=== PATIENT | male | born 1985 | race Caucasian/White ===

== ENCOUNTER 2016-07-27 17:27 | Emergency (ER) | payer OTHER ==
--- NOTE | 2016-07-27 17:41 | EDPHY ---
H & P Smoking Status: Heavy smoker Time Seen by Provider: 07/27/16 17:40 HPI/ROS: CHIEF COMPLAINT: Depression and suicidal ideation HISTORY OF PRESENT ILLNESS: This 30-year-old man has a history of heroin addiction has had 3 relapses since he was in rehab in May. His most recent 1 was on Monday. He presents today with symptoms of increasing and severe depression and is brought in by his mother. He tells me that he wants to overdose or has thoughts of "going into the mountain and jumping off" something to kill himself. Symptoms are severe but not associated with any actual self injury today. Increasing anxiety. REVIEW OF SYSTEMS: Eye: no change in vision ENT: no sore throat Cardiac: no chest pain or syncope Pulmonary: no cough or SOB Abdomen: Intermittent nausea in the setting of narcotic withdrawal. Musculoskeletal: Chronic neck and back pain from ankylosing spondylitis. Skin: Recent left forearm superficial abrasions from a blunt knife but no laceration or abscess Neuro: no headache Constitutional: no fever : no urinary symptoms A comprehensive 10 point review of systems is otherwise negative aside from elements mentioned in the history of present illness. PAST MEDICAL HISTORY: IV drug abuse, ankylosing spondylitis, depression Social history: IV drug use as above. General Appearance: Alert and conversant, cooperative. Eyes: No scleral icterus. ENT, Mouth: Normal mucous membranes. Respiratory: Normal respiratory effort, breath sounds equal, lungs are clear to auscultation. Cardiovascular: Regular rate and rhythm. No murmur. Gastrointestinal: Abdomen is soft and non tender. Neurological: Alert and oriented x3. Normally conversant. Face symmetric, normal movement and sensation in all extremities. Skin: Superficial abrasions to the left forearm nonsuturable and no evidence of cellulitis. No upper extremity abscess. Musculoskeletal: No peripheral edema and no joint swelling. Psychiatric: Depressed affect, admits to suicidal ideation. Emergency Department course/MDM: Patient placed on a mental health hold at 6:00 p.m. for suicidal thoughts with plan to overdose or "go into the mountains and jump off" something. Zofran ODT 4 mg, Ativan 1 mg IV, 21 mg nicotine patch. The patient had a medical screening evaluation performed. There does not appear to be an acute emergent medical or surgical condition which would preclude psychiatric evaluation at this time. Mental health evaluation is requested at 1802. 2300: Signed out to Dr. Remy with mental health evaluation pending. (Gaurav Ortez) Constitutional: Initial Vital Signs Temperature (C) 36.8 C 07/27/16 17:32 Heart Rate 81 07/27/16 17:32 Respiratory Rate 18 07/27/16 17:32 Blood Pressure 133/87 H 07/27/16 17:32 O2 Sat (%) 98 07/27/16 17:32 O2 Delivery Mode Room Air Allergies/Adverse Reactions: azithromycin [From Zithromax] Allergy (Severe, Verified 07/27/16 17:30) Hives Home Medications: Medication Instructions Recorded Lexapro 07/27/16 Seroquel 07/27/16 Zofran 07/27/16 traZODone 07/27/16 Medical Decision Making Differential Diagnosis: Differential diagnosis considered for depression including functional and major depression, situational depression, medication side effect, drugs and alcohol abuse. (Gaurav Ortez) Other Provider: 0711: no acute events overnight. Patient signed over to Dr. Luong at 7:00 a.m. shift change. Patient is pending psychiatric placement. (Afshin Remy) I assumed care of the patient at 7 o'clock in the morning pending psychiatric placement. Update at 8:00 a.m.: The patient has been accepted by Dr. Clement King at [facility]. I have filled out the EMTALA transfer form. ( Brian Luong) - Data Points Laboratory Results: Laboratory Results 07/27/16 18:35 07/27/16 18:35 Medications Given: Discontinued Medications Diphtheria/Tetanus/Acell Pertussis (Boostrix) 0.5 ml IM .ONCE ONE Stop: 07/27/16 20:23 Last Admin: 07/27/16 20:25 Dose: 0.5 ml Ibuprofen (Motrin) 600 mg PO EDNOW ONE Stop: 07/27/16 22:05 Last Admin: 07/27/16 22:09 Dose: 600 mg Lorazepam (Ativan) 1 mg PO EDNOW ONE Stop: 07/27/16 17:59 Last Admin: 07/27/16 18:43 Dose: 1 mg Lorazepam (Ativan) 1 mg PO EDNOW ONE Stop: 07/28/16 00:05 Last Admin: 07/28/16 00:06 Dose: 1 mg Nicotine (Nicoderm Cq) 21 mg TD EDNOW ONE Stop: 07/27/16 17:59 Last Admin: 07/27/16 18:45 Dose: Not Given Ondansetron HCl (Zofran Odt) 4 mg PO EDNOW ONE Stop: 07/27/16 18:00 Last Admin: 07/27/16 18:43 Dose: 4 mg Quetiapine Fumarate (Seroquel) 100 mg PO ONCE ONE Stop: 07/27/16 22:09 Last Admin: 07/27/16 22:32 Dose: 100 mg Departure - Departure Disposition: Other Psych, Not [facility] Clinical Impression: Suicidal ideation, Severe major depression Condition: Fair Referrals: CAROLA ROBLES [Primary Care Provider] - As per Instructions
[2016-07-27] MEDS ORDERED: LORazepam 1 MG TAB PO ONE (17:58)
[2016-07-27] MEDS ORDERED: NICOTINE 21 MG/24 HR PATCH TD ONE (17:58)
[2016-07-27] MEDS ORDERED: ONDANSETRON DISINTEGRATING 4 MG TAB PO ONE (17:59)
[2016-07-27] MEDS ORDERED: NICOTINE POLACRILEX 2 MG GUM B PRN (18:44)
[2016-07-27 18:47] LABS: % IMMATURE GRANULYOCYTES 0.4 % (0.0-1.1); ABSOLUTE IMMATURE GRANULOCYTES 0.04 10^3/uL (0.00-0.10); ADD DIFF? NO; ADD MORPH? NO; ADD SCAN? NO; ATYPICAL LYMPHOCYTE FLAG 10 (0-99); FRAGMENT RBC FLAG 0 (0-99); HEMATOCRIT 48.7 % (40.0-51.0); HEMOGLOBIN 16.4 g/dL (13.7-17.5); LEFT SHIFT FLG 0 (0-99); LIPEMIA HEMOLYSIS FLAG 80 (0-99); MEAN CELL HEMOGLOBIN 29.4 pg (27.9-34.1); MEAN CELL HEMOGLOBIN CONCENTR. 33.7 g/dL (32.4-36.7); MEAN CELL VOLUME 87.4 fL (81.5-99.8); MEAN PLATELET VOLUME 9.9 fL (8.7-11.7); PLATELET CLUMPS FLAG 10 (0-99); PLATELET COUNT 206 10^3/uL (150-400); RED BLOOD CELL COUNT 5.57 10^6/uL (4.40-6.38); RED CELL DISTRIBUTION WIDTH 12.7 % (11.5-15.2)
[2016-07-27 19:06] LABS: ANION GAP 14 mEq/L (8-16); CALCIUM 10.1 mg/dL (8.5-10.4); CARBON DIOXIDE 24 mEq/l (22-31); CHLORIDE 105 mEq/L (97-110); CREATININE 0.6 mg/dL (0.7-1.3); ETHANOL SERUM < 10 mg/dL (0-10); GLOMERULAR FILTRATION RATE > 60; GLUCOSE 140 mg/dL (70-100); POTASSIUM 4.1 mEq/L (3.5-5.2); SALICYLATE < 1.0 mg/dL (2.0-20.0); SODIUM 143 mEq/L (134-144)
[2016-07-27] MEDS ORDERED: TDAP ADULT 0.5 ML INJ (BOOSTRIX) IM ONE (20:22)
[2016-07-27] MEDS ORDERED: IBUPROFEN 600 MG TAB PO ONE (22:04)
[2016-07-27] MEDS ORDERED: QUEtiapine FUMARATE 100 MG TAB PO ONE (22:08)
[2016-07-27] MEDS ORDERED: traZODone 100 MG TAB PO SCH (22:30)
[2016-07-28] MEDS ORDERED: LORazepam 1 MG TAB ONE (00:02)
[2016-07-28] MEDS ORDERED: LORazepam 1 MG TAB PO ONE (00:04)
[2016-07-28 08:40] VITALS: BP 101/55; PULSE 82; RESP 18; TEMP 97.7; O2SAT 96
== END 2016-07-28 10:07 ==
DX: F32.2 Major depressive disorder, single episode, severe without psychotic features (principal); R45.851 Suicidal ideations; F17.200 Nicotine dependence, unspecified, uncomplicated
CPT/HCPCS: 80305; G0480

== ENCOUNTER 2016-12-24 17:58 | Inpatient (IN) | payer OTHER ==
--- NOTE | 2016-12-24 18:23 | EDPHY ---
H & P Stated Complaint: Shot up R wrist 2 wks ago;now has abcess/cellulitis at site HPI/ROS: HPI CHIEF COMPLAINT: Right forearm pain, redness, swelling, IV drug use HISTORY OF PRESENT ILLNESS: This patient 31-year-old male, history of anxiety and chronic back pain from ankylosing spondylitis, history of opioid addiction and dependency on methadone, 2 weeks ago he tells me he relapsed and did IV drugs, he shot up in his right wrist. He states for the past 2 weeks he has had progressively worsening right wrist pain swelling and redness. Over the past 48 hours it has been quite severe. Does state that he has had chills and sweats at night. No recorded temp however was 37.7 upon arrival to the emergency room. Of note on exam palmar side of the right wrist there is significant erythema no crepitus, does streak up his arm. It is warm to touch and exquisitely painful. Swollen. Past Medical History: IV drug use, opiate dependency, on methadone, ankylosing spondylitis, anxiety Past Surgical History: No recent surgery Social History: IV drug use Family History: Noncontributory ROS REVIEW OF SYSTEMS: A comprehensive 10 point review of systems is otherwise negative aside from elements mentioned in the history of present illness. Exam Constitutional triage nursing summary reviewed, vital signs reviewed, awake/ alert. Eyes normal conjunctivae and sclera, EOMI, PERRLA. HENT normal inspection, atraumatic, moist mucus membranes, no epistaxis, neck supple/ no meningismus, no raccoon eyes. Respiratory clear to auscultation bilaterally, normal breath sounds, no respiratory distress, no wheezing. Cardiovascular no murmur, rate normal, regular rhythm, no murmur, no edema, distal pulses normal. Gastrointestinal soft, non-tender, no rebound, no guarding, normal bowel sounds, no distension, no pulsatile mass. Genitourinary no CVA tenderness. Musculoskeletal no midline vertebral tenderness, full range of motion, no calf swelling, no tenderness of extremities, no meningismus, good pulses, neurovascularly intact. Skin RUE: Good radial pulse. Good cap refill. Palmar side right wrist erythema and warmth and tenderness present. No crepitus. No evidence of gas on external exam, the erythema streaks up his right arm to his elbow. Tender and warm. Concerning for significant infection. Neurologic awake, alert and oriented x 3, AAOx3, moves all 4 extremities equally, motor intact, sensory intact, CN II-XII intact, normal cerebellar, normal vision, normal speech. Psychiatric normal mood/affect. Heme/Lymph/Immune no lymphadenopathy. Differential Diagnosis: Includes but is not limited to in a particular order MRSA infection, strep infection, bacteremia, sepsis, necrotizing fasciitis, osteomyelitis, IV drug use IV drug use site infection, arm abscess Medical Decision Making: Plan for this patient blood cultures, inflammatory markers, IV establishment, IV fluid bolus, check lactic acid, blood cultures, CBC, IV vancomycin x-ray of the right wrist. Patient will most likely need to be admitted for cellulitis. Possible MRI of his arm. Re-evaluation: ED x-ray: Right wrist: Negative for acute fracture. I do not appreciate any gas. 2138: I spoke with the hospitalist service who agrees to admit this patient for a right arm cellulitis. Dr. Ford Source: Patient - Personal History Current Tetanus Diphtheria and Acellular Pertussis (TDAP): Yes - Medical/Surgical History Hx Asthma: No Hx Chronic Respiratory Disease: No Hx Diabetes: No Hx Cardiac Disease: No Hx Renal Disease: No Hx Cirrhosis: No Hx Alcoholism: No Hx HIV/AIDS: No Hx Splenectomy or Spleen Trauma: No Other PMH: IVDA , , Depression, Anxiety - Social History Smoking Status: Current every day smoker Constitutional: Initial Vital Signs Temperature (C) 37.7 C 12/24/16 18:05 Heart Rate 88 12/24/16 18:05 Respiratory Rate 18 12/24/16 18:05 Blood Pressure 101/54 L 12/24/16 18:05 O2 Sat (%) 91 L 12/24/16 18:05 O2 Delivery Mode Room Air Allergies/Adverse Reactions: azithromycin [From Zithromax] Allergy (Intermediate, Verified 12/24/16 18:08) Hives Home Medications: Medication Instructions Recorded ALPRAZolam [Xanax 1 MG (*)] 1 - 2 mg PO DAILY PRN 12/24/16 Gabapentin [Neurontin 300 MG (*)] 300 mg PO TID 12/24/16 Ibuprofen [Motrin (*)] 800 mg PO DAILY PRN 12/24/16 Loperamide HCl [Imodium 2 mg (*)] 2 mg PO PRN PRN 12/24/16 Methadone HCl [Methadone 5 mg (*)] 135 mg PO DAILY 12/24/16 Methocarbamol [Robaxin 500 mg (*)] 500 mg PO HS PRN 12/24/16 Ondansetron Odt [Zofran Odt 4 mg 4 mg PO Q4 PRN 12/24/16 (*)] QUEtiapine FUMARATE [Seroquel 100 100 mg PO HS 12/24/16 mg (*)] traZODone [traZODONE 100MG (*)] 100 mg PO HS 12/24/16 Medical Decision Making - Diagnostics Imaging Results: Imaging Impressions Wrist X-Ray 12/24/16 18:30 Impression: No acute osseous findings. - Data Points Laboratory Results: Laboratory Results 12/24/16 18:42 12/24/16 18:42 12/24/16 12/24/16 12/24/16 18:42 18:42 18:42 WBC 11.59 10^3/uL H 10^3/uL (3.80-9.50) RBC 4.47 10^6/uL 10^6/uL (4.40-6.38) Hgb 13.2 g/dL L g/dL (13.7-17.5) Hct 40.6 % % (40.0-51.0) MCV 90.8 fL fL (81.5-99.8) MCH 29.5 pg pg (27.9-34.1) MCHC 32.5 g/dL g/dL (32.4-36.7) RDW 12.9 % % (11.5-15.2) Plt Count 184 10^3/uL 10^3/uL (150-400) MPV 10.2 fL fL (8.7-11.7) Neut % (Auto) 65.9 % % (39.3-74.2) Lymph % (Auto) 23.6 % % (15.0-45.0) [place] % (Auto) 6.9 % % (4.5-13.0) Eos % (Auto) 3.0 % % (0.6-7.6) Baso % (Auto) 0.3 % % (0.3-1.7) Nucleat RBC Rel Count 0.0 % % (0.0-0.2) Absolute Neuts (auto) 7.65 10^3/uL H 10^3/uL (1.70-6.50) Absolute Lymphs (auto) 2.73 10^3/uL 10^3/uL (1.00-3.00) Absolute Monos (auto) 0.80 10^3/uL 10^3/uL (0.30-0.80) Absolute Eos (auto) 0.35 10^3/uL 10^3/uL (0.03-0.40) Absolute Basos (auto) 0.03 10^3/uL 10^3/uL (0.02-0.10) Absolute Nucleated RBC 0.00 10^3/uL 10^3/uL (0-0.01) Immature Gran % 0.3 % % (0.0-1.1) Immature Gran # 0.03 10^3/uL 10^3/uL (0.00-0.10) ESR 8 MM/HR MM/HR (0-15) PT 14.1 SEC SEC (12.0-15.0) INR 1.10 (0.83-1.16) APTT 32.5 SEC SEC (23.0-38.0) VBG Lactic Acid Sodium 141 mEq/L mEq/L (134-144) Potassium 4.0 mEq/L mEq/L (3.5-5.2) Chloride 103 mEq/L mEq/L (97-110) Carbon Dioxide 26 mEq/l mEq/l (22-31) Anion Gap 12 mEq/L mEq/L (8-16) BUN 6 mg/dL L mg/dL (7-23) Creatinine 0.7 mg/dL mg/dL (0.7-1.3) Estimated GFR > 60 Glucose 74 mg/dL mg/dL (70-100) Calcium 9.2 mg/dL mg/dL (8.5-10.4) C-Reactive Protein 47.7 mg/L H mg/L (<10.0) Procalcitonin 0.05 ng/mL ng/mL (0.02-0.10) 12/24/16 18:42 WBC RBC Hgb Hct MCV MCH MCHC RDW Plt Count MPV Neut % (Auto) Lymph % (Auto) [place] % (Auto) Eos % (Auto) Baso % (Auto) Nucleat RBC Rel Count Absolute Neuts (auto) Absolute Lymphs (auto) Absolute Monos (auto) Absolute Eos (auto) Absolute Basos (auto) Absolute Nucleated RBC Immature Gran % Immature Gran # ESR PT INR APTT VBG Lactic Acid 1.0 mmol/L mmol/L (0.7-2.1) Sodium Potassium Chloride Carbon Dioxide Anion Gap BUN Creatinine Estimated GFR Glucose Calcium C-Reactive Protein Procalcitonin Medications Given: Discontinued Medications Sodium Chloride (Ns) 1,000 mls @ 0 mls/hr IV EDNOW ONE; Wide Open PRN Reason: Protocol Stop: 12/24/16 18:29 Last Admin: 12/24/16 19:12 Dose: 1,000 mls Vancomycin/Sodium Chloride (Vancomycin 1 Gm (Premix)) 250 mls @ 250 mls/hr IV EDNOW ONE PRN Reason: Protocol Stop: 12/24/16 19:29 Last Admin: 12/24/16 19:12 Dose: 250 mls Departure - Departure Disposition: [facility] Inpatient Acute Clinical Impression: Cellulitis Qualifiers: Site of cellulitis: extremity Site of cellulitis of extremity: upper extremity Laterality: right Qualified Code(s): L03.113 - Cellulitis of right upper limb Condition: Fair Referrals: CAROLA ROBLES [Primary Care Provider] - As per Instructions
[2016-12-24] MEDS ORDERED: NS 1,000 ML IV ONE (18:28)
[2016-12-24] MEDS ORDERED: VANCOMYCIN HCL/NORMAL SALINE 250 ML IV ONE (18:30)
[2016-12-24 18:54] LABS: % IMMATURE GRANULYOCYTES 0.3 % (0.0-1.1); ABSOLUTE IMMATURE GRANULOCYTES 0.03 10^3/uL (0.00-0.10); ADD DIFF? NO; ADD MORPH? NO; ADD SCAN? NO; ATYPICAL LYMPHOCYTE FLAG 10 (0-99); FRAGMENT RBC FLAG 0 (0-99); HEMATOCRIT 40.6 % (40.0-51.0); HEMOGLOBIN 13.2 g/dL (13.7-17.5); LEFT SHIFT FLG 0 (0-99); LIPEMIA HEMOLYSIS FLAG 80 (0-99); MEAN CELL HEMOGLOBIN 29.5 pg (27.9-34.1); MEAN CELL HEMOGLOBIN CONCENTR. 32.5 g/dL (32.4-36.7); MEAN CELL VOLUME 90.8 fL (81.5-99.8); MEAN PLATELET VOLUME 10.2 fL (8.7-11.7); PLATELET CLUMPS FLAG 0 (0-99); PLATELET COUNT 184 10^3/uL (150-400); RED BLOOD CELL COUNT 4.47 10^6/uL (4.40-6.38); RED CELL DISTRIBUTION WIDTH 12.9 % (11.5-15.2)
[2016-12-24 19:02] LABS: INR 1.1 (0.83-1.16); PROTIME(PATIENT) 14.1 SEC (12.0-15.0)
[2016-12-24 19:03] LABS: APTT 32.5 SEC (23.0-38.0)
[2016-12-24 19:05] LABS: SEDIMENTATION RATE 8 MM/HR (0-15)
[2016-12-24 19:20] LABS: ANION GAP 12 mEq/L (8-16); C-REACTIVE PROTEIN 47.7 mg/L (<10.0); CALCIUM 9.2 mg/dL (8.5-10.4); CARBON DIOXIDE 26 mEq/l (22-31); CHLORIDE 103 mEq/L (97-110); CREATININE 0.7 mg/dL (0.7-1.3); GLOMERULAR FILTRATION RATE > 60; GLUCOSE 74 mg/dL (70-100); SODIUM 141 mEq/L (134-144)
[2016-12-24 19:36] LABS: PROCALCITONIN 0.05 ng/mL (0.02-0.10)
[2016-12-24] MEDS ORDERED: ONDANSETRON DISINTEGRATING 4 MG TAB PO PRN (21:45)
[2016-12-24] MEDS ORDERED: ONDANSETRON 4 MG/2 ML VIAL IVP PRN (21:45)
[2016-12-24] MEDS ORDERED: PROMETHAZINE HCL 25 MG/ML INJ IVP PRN (21:45)
[2016-12-24] MEDS ORDERED: LOPERAMIDE HCL 2 MG CAP PO PRN (21:51)
[2016-12-24] MEDS ORDERED: METHOCARBAMOL 500 MG TAB PO PRN (21:51)
[2016-12-24] MEDS: NS 1,000 ML IV SCH ×2 (22:22→22:25)
[2016-12-24] MEDS: GABAPENTIN 300 MG CAP PO SCH (22:25)
[2016-12-24] MEDS: LORazepam 2 MG/ML INJ IVP PRN (22:34)
[2016-12-24] MEDS: HYDROmorphONE/DILAUDID 1 MG/ML SYR IVP PRN (22:34)
[2016-12-24] MEDS: oxyCODONE IR 5 MG TAB PO PRN (22:35)
--- NOTE | 2016-12-25 00:24 | GHP ---
[f rep st] HISTORY AND PHYSICAL DATE OF ADMISSION: 12/24/2016 CHIEF COMPLAINT: Right upper extremity swelling and pain. HISTORY: This is a 31-year-old man who has a past medical history of IV drug abuse and prior shoote rs abscesses as well as ankylosing spondylitis who presents with pain in his right wrist and forearm in the setting of having shot up in that arm about 2 weeks ago. Patient notes that initially it wa s okay, but over the last several days, there has been increasing redness, swelling, and pain involv ing the wrist and that entire forearm. He notes it is difficult for him to move his wrist at all. He has had chills but no clear fevers. He has had a similar issue in the past, but this was years a go, and he states that was treated with drainage and was much less painful than this. He notes that his IV drug use has largely been in remission and states that the only time he has used in the last year was 2 weeks ago. PAST MEDICAL HISTORY: Includes: 1. IV drug use. 2. Opiate dependency currently on methadone. 3. Ankylosing spondylitis. 4. Anxiety. 5. Cyclic vomiting syndrome. PAST SURGICAL HISTORY: Denies. FAMILY HISTORY: He notes that it is benign. SOCIAL HISTORY: Includes IV drug use. 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 REVIEW OF SYSTEMS: 10-point review of systems obtained negative except as per HPI. MEDICATIONS: Include: 1. Ibuprofen. 2. Zofran. 3. Xanax. 4. Gabapentin. 5. Loperamide. 6. Methadone. 7. Methocarbamol. 8. Quetiapine. 9. Trazodone. ALLERGIES: Azithromycin. PHYSICAL EXAM: VITAL SIGNS: BP 131/74, heart rate 73, respiratory rate 16, O2 sats 90% on room air , temperature is 37.8. GENERAL APPEARANCE: This is a young man, he is in mild distress. EYES: Anicteric. HENT: Oropharynx clear. CARDIOVASCULAR: RRR. No MRG. PULMONARY: CTA bilate rally. Normal work of breathing. ABDOMEN: Soft, nontender, nondistended. EXTREMITIES: Right upp er extremity with area of profound erythema near the wrist, decreased range of motion at the wrist. Forearm is a little bit tense and distended. SKIN: Other than above, warm, dry, well-perfused. NEURO/PSYCH: Oriented and appropriate, pleasant . CLINICAL DATA: Labs reviewed. Significant for white blood cell count of 11.59, hematocrit of 40.6, platelets of 184, coags are normal. Lactic acid is 1.0. Chemistry is unremarkable. CRP is 47.7. Wrist x-ray, I personally reviewed and interpreted, shows no acute osseous findings. ASSESSMENT AND PLAN: This is a 31-year-old man, past medical history of IV drug abuse, presenting w ith right upper extremity cellulitis in the setting of recent injection. 1. Right upper extremity cellulitis. Again, this is in the setting of recent drug abuse and inject ion of unclean needle in that wrist. He does have exquisite tenderness and very limited range of mo tion in the wrist, concerning for possible joint involvement. Will follow up with a wrist MRI. He has been started on vancomycin which will be continued for now pending blood cultures. Infectious D isjunito will be consulted in the morning. 2. Opiate dependency. Patient is currently in treatment with methadone. He notes that he has rela psed only once in the last year. This is as per above. We will continue his methadone, but he is h aving significant pain, and we will also require opiates for breakthrough pain. 3. Anxiety. This does seem to be contributing to his difficulty tolerating his pain. Will treat w ith p.r.n. benzodiazepines. 4. Leukocytosis in the setting of acute infectious process as per above. We will trend. DISPOSITION: Observation status. Suspect patient will need less than 48 hours stay for evaluation and management of above. Patient is new to my care. Old records reviewed, summarized as per HPI and past medical history. C are plan reviewed with ER physician, including plans for antibiotics. /[id number]/MODL
[2016-12-25] MEDS: oxyCODONE IR 5 MG TAB PO PRN ×6 (01:23→21:54)
[2016-12-25] MEDS: ALPRAZolam 1 MG TAB PO PRN ×4 (01:23→21:54)
[2016-12-25] MEDS: HYDROmorphONE/DILAUDID 1 MG/ML SYR IVP PRN ×4 (04:43→18:48)
[2016-12-25 05:48] LABS: ANION GAP 10 mEq/L (8-16); CALCIUM 8.8 mg/dL (8.5-10.4); CARBON DIOXIDE 22 mEq/l (22-31); CHLORIDE 106 mEq/L (97-110); CREATININE 0.7 mg/dL (0.7-1.3); GLOMERULAR FILTRATION RATE > 60; GLUCOSE 80 mg/dL (70-100); POTASSIUM 4.4 mEq/L (3.5-5.2); SODIUM 138 mEq/L (134-144)
[2016-12-25] MEDS: VANCOMYCIN 1.25 GM in D5W 250 ML IV SCH ×2 (06:42→18:49)
[2016-12-25] MEDS: GABAPENTIN 300 MG CAP PO SCH ×3 (07:35→21:23)
[2016-12-25] MEDS: ACETAMINOPHEN 325 MG TAB PO PRN ×3 (07:35→16:15)
[2016-12-25 08:10] LABS: % IMMATURE GRANULYOCYTES 0.3 % (0.0-1.1); ABSOLUTE IMMATURE GRANULOCYTES 0.03 10^3/uL (0.00-0.10); ADD DIFF? NO; ADD MORPH? NO; ADD SCAN? NO; ATYPICAL LYMPHOCYTE FLAG 10 (0-99); FRAGMENT RBC FLAG 0 (0-99); HEMATOCRIT 38.4 % (40.0-51.0); HEMOGLOBIN 12.4 g/dL (13.7-17.5); LEFT SHIFT FLG 0 (0-99); LIPEMIA HEMOLYSIS FLAG 80 (0-99); MEAN CELL HEMOGLOBIN 29.2 pg (27.9-34.1); MEAN CELL HEMOGLOBIN CONCENTR. 32.3 g/dL (32.4-36.7); MEAN CELL VOLUME 90.4 fL (81.5-99.8); MEAN PLATELET VOLUME 10.4 fL (8.7-11.7); PLATELET CLUMPS FLAG 0 (0-99); PLATELET COUNT 169 10^3/uL (150-400); RED BLOOD CELL COUNT 4.25 10^6/uL (4.40-6.38)
[2016-12-25] MEDS: METHADONE HCL 10 MG/ML 1000 ML BULK BOTTLE PO SCH (08:49)
[2016-12-25] MEDS: LORazepam 2 MG/ML INJ IVP PRN (09:05)
[2016-12-25] MEDS ORDERED: GADOBUTROL 10 ML VIAL IVP ONE (11:02)
[2016-12-25 11:56] LABS: ALBUMIN 3.7 g/dL (3.5-5.0); BILIRUBIN,TOTAL 0.5 mg/dL (0.1-1.4); BILIRUBIN-CONJUGATED 0.4 mg/dL (0.0-0.5); BILIRUBIN-UNCONJUGATED 0.1 mg/dL (0.0-1.1); TOTAL PROTEIN 6.3 g/dL (6.3-8.2)
[2016-12-25] MEDS: ERTAPENEM 1 GM in NS 100 ML IV SCH (14:09)
--- NOTE | 2016-12-25 15:56 | GCON ---
[f rep st] CONSULTATION INFECTIOUS DISEASE CONSULTATION DATE OF CONSULTATION: 12/25/2016 REFERRING PHYSICIAN: Ting Ford MD REASON FOR CONSULTATION: Right upper extremity cellulitis with possible abscess after recent inject ion of intravenous drugs. CHIEF COMPLAINT: Painful right arm. HISTORY OF PRESENT ILLNESS: This is a 31-year-old, male with a past medical history signi ficant for history of injection drug use, history of shooters abscesses, ankylosing spondylitis, anx iety, who apparently had been in a drug rehab program, but over the past couple months relapsed. Mo st recently, he shot up, both of his upper extremities, about 2 weeks ago. Shortly thereafter, he s tarted to develop redness involving the right arm, as well as the left upper arm. He was putting so me topical antibiotics over it, but it was getting worse, and he was starting to have more significa nt localized pain to the wrist, especially the right wrist. With decreased range of motion. He stat es that he has not been very cleanly with his needles, and he has often licked his needles or ran th e needles through hot water prior to injection. He has had fevers and shaking chills over the past week. Due to increasing pain and limited range of motion, he came in for further evaluation. He gonzalez d a fever of 37.7 and leukocytosis of 11.5, with an elevated C-reactive protein. He had a wrist x-r ay done, which showed no osseous changes. Blood cultures x2 sets were drawn also. Those are pendin g. He was placed empirically on vancomycin. An MRI has been ordered, but it will be done today, so that is pending. Infectious Disease is now consulted for further evaluation and above. REVIEW OF SYSTEMS: GENERAL: Had fevers and shaking chills. HEAD: Has mild headaches with some ch ronic changes in vision. ENT: No sore throat, difficulty swallowing, ear pain, or ear drainage. C ARDIOVASCULAR: No chest pain, but has had some palpitations. RESPIRATORY: Denies any shortness of breath. He has a chronic cough with some minimal sputum production on a regular basis because he s mokes. ABDOMEN: No nausea, vomiting, abdominal pain, diarrhea at present. : No dysuria, hematu divya. BACK: He has chronic back pain. No CVA tenderness. LOWER EXTREMITIES: No edema. MUSCULOSK ELETAL: No other joint pains. SKIN: No other areas of rashes or abscesses or wounds. Rest of 10- point review of systems essentially negative. PAST MEDICAL HISTORY: Significant for intravenous drug usage, ankylosing spondylitis, anxiety, cycl ic vomiting syndrome, opiate dependency, currently on methadone. He has had some fractures involving both his upper extremities and his clavicle. He has no hardware in place. PAST SURGICAL HISTORY: Significant for appendicitis. ALLERGIES: Azithromycin, which he would say he was a baby and he got a rash. FAMILY HISTORY: Significant for breast cancer in his mother. Skin cancer in his father. SOCIAL HISTORY: He smokes a pack a day. He drinks alcohol socially. Recent injection drug usage. Lives with a roommate. He is working in EDS at a local school. MEDICATIONS: As per MAR. PHYSICAL EXAMINATION: VITAL SIGNS: Temperature, current, 36.9, pulse is 67, blood pressure 140/95, respiratory rate is 16, saturation 97% on 2 L O2 via nasal cannula. GENERAL: He is sitting in bed in no acute respiratory distress. Awake, alert, oriented x3. HEENT. Head is normocephalic, atrau matic. Pupils are equal, round, react to light. No conjunctival injection. No petechiae noted. O ropharynx is clear. No posterior pharynx erythema or thrush. CARDIOVASCULAR: S1, S2. Regular rhy thm. Mildly tachycardic. No murmurs appreciated. RESPIRATORY: Clear to auscultate bilaterally. No rhonchi or rales appreciated. ABDOMEN: Positive bowel sounds in all 4 quadrants. Soft, nontend er, nondistended. No organomegaly appreciated. EXTREMITIES: No lower extremity edema. MUSCULOSKE LETAL: No other obvious areas of joint effusions or pain on palpation of joints. SKIN: Pertinent findings with erythema involving the right forearm, more concentrated distally toward the wrist. Th ere is limited range of motion at the wrist. Skin is warm to touch and is painful. Also, he had so me erythema on the left upper extremity, which has resolved. There is, however, thickening of the v ein and scarring present. He does have other areas of track hernandez noted. No numbness or tingling o f the extremities, and peripheral pulses are well appreciated. LABORATORY DATA: White blood cell count is 10.1, hemoglobin 12.4, platelets are 169, neutrophil cou nt is 50. ESR 8. INR 1.1. Venous lactic acid 1.0. Sodium 138, potassium 4.4, chloride 106, bicar b 22, BUN is 7, creatinine 0.7. C-reactive protein 47. Blood cultures in 2 sets are pending. DIAGNOSTIC DATA: Wrist x-ray was noted and reviewed. No osseous changes. ASSESSMENT: 1. Right forearm cellulitis, with likely abscess or possible septic arthritis involving the wrist j oint. 2. History of injection drug usage. 3. Azithromycin allergy. PLAN: At this point in time, patient is currently on vancomycin, which I will continue for now unti l cultures are resulted out. I agree with an MRI and await those findings to better direct the next step of intervention that may be needed. Given the fact that he has not used clean needles and has licked his needles or run it through hot water, would broaden his antimicrobials further to provide some additional coverage until cultures can better direct his therapy. Recommend checking HIV, hep atitis C, hepatitis B to start with. Patient gave me a verbal consent. Etiology of such infections were discussed in detail. Expected clinical course was discussed. Possible interventions were als o discussed with the patient. I thank you very much for this opportunity to care for your patient in consultation. /[id number]/MODL
--- NOTE | 2016-12-25 17:56 | HOSPPROG ---
Hospitalist Progress Note Assessment/Plan: The patient is a male with H opioid addiction, ankylosing spondylitis who was admitted for right forearm cellulitis. ASSESSMENT/PLAN: Cellulitis of right forearm IV drug abuse Opioid dependence, on methadone Chronic pain Ankylosing spondylitis Anxiety -IV antibiotic. Rash is responding appropriately. Consider to switch to p.o. antibiotics discharge when patient is ready. -blood culture pending -Discussed case with ID, who recommended to keep patient in hospital longer. -MRI suggests no abscess. -p.r.n. Pain medication and anxiety medication. May apply ice to help with pain. -patient has been requesting more frequent IV Dilaudid, Ativan, and Xanax. His vital signs are normal and he appears comfortable, so I recommended that we keep him on the same p.r.n. medication regimen because too many medications can cause more adverse effects. -Counseled about avoiding IVD use. VTE ppx: SCDs. Code Status: Full Status: Changing from observation to inpatient for greater than 2 midnight stay for cellulitis, uncontrolled pain, difficulty using right upper extremity to do normal ADLs. Disposition: Med [facility] with discharge anticipated in the next 1-2 days. ____ SUBJECTIVE: Patient complains of pain in his right wrist and forearm. He is worried that he will not be able to work when he leaves the hospital. He c/o pain and wants more pain medication. OBJECTIVE: Physical Exam: General: The patient is a male who is alert and in no acute distress. HEENT: normocephalic, extraocular movements intact, conjunctivae clear. Mucous membranes moist. Neck: trachea midline, no visible masses. CV: Normal peripheral perfusion bilateral upper and lower extremities. Resp: unlabored effort of breathing. Abd: soft and nondistended. Bowel sounds present. Musculoskeletal: Normal muscle tone/bulk. Neuro: cranial nerves II XII grossly intact. Intact gross motor and sensory function. Psych: Appropriate mood and appropriate affect. Skin: No pallor. +erythematous rash of right anterior distal forearm, much smaller than the demarcated area. Heme/lymph: No peripheral edema at bilateral lower extremities. Mild edema right distal forearm. Labs/Imaging/Other Tests: Personally reviewed/interpreted. Wrist XR - no osteomyelitis. MRI R wrist - no abscess. This patient is new to me. Reviewed patient's chart/records for this visit. Objective: Vital Signs Temp Pulse Resp BP Pulse Ox 36.8 C 57 L 14 135/81 H 95 12/25/16 15:48 12/25/16 15:48 12/25/16 15:48 12/25/16 15:48 12/25/16 15:48 Laboratory Results 12/25/16 07:44 12/25/16 04:52 12/24/16 12/25/16 12/26/16 05:59 05:59 05:59 Intake Total 3465 100 Output Total 800 575 Balance 2555 -475 PT 14.1 SEC (12.0-15.0) 12/24/16 18:42 INR 1.10 (0.83-1.16) 12/24/16 18:42 ICD10 Worksheet Patient Problems: Problems Problem Status Onset Cellulitis Acute
[2016-12-25] MEDS: IBUPROFEN 600 MG TAB PO PRN (18:44)
[2016-12-25] MEDS: LORazepam 0.5 MG TAB PO PRN (18:47)
[2016-12-25] MEDS ORDERED: traZODone 100 MG TAB PO SCH (21:00)
[2016-12-25] MEDS ORDERED: QUEtiapine FUMARATE 100 MG TAB PO SCH (21:00)
[2016-12-26] MEDS: HYDROmorphONE/DILAUDID 1 MG/ML SYR IVP PRN ×2 (00:12→05:09)
[2016-12-26] MEDS: IBUPROFEN 600 MG TAB PO PRN (02:02)
[2016-12-26] MEDS: oxyCODONE IR 5 MG TAB PO PRN (02:03)
[2016-12-26] MEDS: LORazepam 0.5 MG TAB PO PRN ×2 (05:09→13:22)
[2016-12-26 05:11] LABS: % IMMATURE GRANULYOCYTES 0.3 % (0.0-1.1); ABSOLUTE IMMATURE GRANULOCYTES 0.02 10^3/uL (0.00-0.10); ADD DIFF? NO; ADD MORPH? NO; ADD SCAN? NO; ATYPICAL LYMPHOCYTE FLAG 40 (0-99); FRAGMENT RBC FLAG 0 (0-99); HEMATOCRIT 38.1 % (40.0-51.0); HEMOGLOBIN 12.3 g/dL (13.7-17.5); LEFT SHIFT FLG 0 (0-99); LIPEMIA HEMOLYSIS FLAG 80 (0-99); MEAN CELL HEMOGLOBIN 29.4 pg (27.9-34.1); MEAN CELL HEMOGLOBIN CONCENTR. 32.3 g/dL (32.4-36.7); MEAN CELL VOLUME 90.9 fL (81.5-99.8); MEAN PLATELET VOLUME 10.1 fL (8.7-11.7); PLATELET CLUMPS FLAG 10 (0-99); PLATELET COUNT 164 10^3/uL (150-400); RED BLOOD CELL COUNT 4.19 10^6/uL (4.40-6.38); RED CELL DISTRIBUTION WIDTH 12.7 % (11.5-15.2)
[2016-12-26] MEDS: VANCOMYCIN 1.25 GM in D5W 250 ML IV SCH (06:48)
[2016-12-26 07:28] VITALS: BP 116/70; PULSE 56; RESP 14; TEMP 97.8; O2SAT 92
[2016-12-26] MEDS: GABAPENTIN 300 MG CAP PO SCH (08:31)
[2016-12-26] MEDS: METHADONE HCL 10 MG/ML 1000 ML BULK BOTTLE PO SCH (09:17)
[2016-12-26] MEDS: ERTAPENEM 1 GM in NS 100 ML IV SCH (09:17)
--- NOTE | 2016-12-26 09:25 | PCMIDPN ---
Assessment/Plan: Assessment/Plan: 1. Right forearm cellulitis after IVDU: - did not use clean needles, licked needles and ran it under warm occasionally as well - Clinically improving. - wbc improved. - blood cx pending -HIV/HCV/HBV/HAV negative.- Reviewed results with patient. - ON aimee Dow at present with improvment. - Recommend changing to orals atbx: Bactrim + Augmentin x 10 days. side effects of therapy reviewed with patient. -REviwed importance of extremity elevation -f/u in office on 01/02/17 at 11:30am. -care coorinated with hospitalist team eds [facility] aimee Subjective: Afebrile. feeling better. less pressure /pain involving forearm. less swelling as well. less red also. Denies diarrhea, abd pain, or sob. elevating arm. some improvement in range of motion at wrist as well. Objective: Vital Signs Temp Pulse Resp BP Pulse Ox 36.6 C 56 L 14 116/70 92 12/26/16 07:26 12/26/16 07:26 12/26/16 07:26 12/26/16 07:26 12/26/16 07:26 Laboratory Results 12/26/16 04:50 12/25/16 12/26/16 12/27/16 05:59 05:59 05:59 Intake Total 2585 Output Total 1125 Balance 1460 ESR 8 MM/HR (0-15) 12/24/16 18:42 C-Reactive Protein 47.7 mg/L (<10.0) H 12/24/16 18:42 - Physical Exam General Appearance: alert, no apparent distress Respiratory: lungs clear Cardiac/Chest: regular rate, rhythm Extremities: swelling Skin: erythema (left forearm: less red distally compared to yesterday. also less swelling noted. not hot like yesterday. slightly better range of motion as well at wrist. better flexion compared to extension. some induration distally. resolutoin of erythema on left upper arm and right upper arm.) ICD10 Worksheet Patient Problems: Problems Problem Status Onset Cellulitis Acute
[2016-12-26] MEDS: ALPRAZolam 1 MG TAB PO PRN (10:41)
--- NOTE | 2016-12-26 11:38 | PDDCSUM ---
Discharge Summary Discharge Summary: DISCHARGE SUMMARY FOLLOW-UP ITEMS: Outpatient infectious disease follow-up appointment next week DATE OF ADMISSION: 12/24/2016 DATE OF DISCHARGE: 12/26/2016 DISCHARGE DIAGNOSES: 1. Right forearm cellulitis 2. Chronic IV drug use 3. Chronic pain with continuous opiate and benzodiazepine dependency CONSULTATIONS: Infectious Disease, General surgery curb sided PROCEDURES / IMAGING: MRI demonstrating small metallic object at the affected site, most likely needle point, no discrete fluid collection amenable to drainage CHIEF COMPLAINT: Acute arm pain and swelling SUBJECTIVE: Patient is feeling better, continues to have some pain in his right upper extremity PHYSICAL EXAM ON DISCHARGE: Systolic blood pressure is 110, heart rate 50, afebrile overnight, satting on room air, ventral surface of right forearm demonstrates some indurated erythema which is mildly tender to palpation, not particularly fluctuant, full range of motion right wrist and right elbow without pain, there is some pain on hand completion manager in the right upper extremity and none with finger extension, no murmurs on cardiac exam LABS ON DISCHARGE: White blood cell count 6600, ESR 8, CRP 48, blood cultures no growth to date HOSPITAL COURSE BY PROBLEM: 1. Cellulitis. Right upper extremity, secondary to intravenous drug use, suspected to be polymicrobial in the setting of patient licking his needles and also being at risk for community-acquired MRSA,, leukocytosis improved after receiving combination of vancomycin and ertapenem per Infectious Disease. MRI demonstrated no discrete fluid collection amenable to surgical drainage, and although there is a small metallic object in the affected area, most likely the needle point, Dr. Quijano feels like surgical removal would create more harm than potential benefit. He recommends a full course of antibiotics and outpatient reassessment of the affected area. If the area is still indurated and erythematous, then he would recommend outpatient General surgery consultation through the [facility]. The patient will receive an additional 10 days of Bactrim and Augmentin per Dr. Chiang. 2. Chronic IV drug use and continuous opiate and benzodiazepine dependency. The patient certainly does have reason for acute pain exacerbation in the setting of cellulitis, but he is high risk for abuse of any narcotic medications prescribed. Consequently, I recommend that he utilize anti- inflammatory medications at home, and I am only comfortable prescribing him a very limited supply of oral Dilaudid, 4 mg times 10 tabs, given that the patient is chronically on methadone and he will be going to the methadone clinic today to fern picker his chronic dosage. He will also continue utilizing his as needed outpatient Xanax doses, and I will not prescribe him additional Ativan at this time. DISCHARGE MEDICATIONS: Please see official discharge medication reconciliation sheet in chart , Bactrim double strength bid 10 day supply, Augmentin 875 bid, 10 day supply, Dilaudid 4 mg orally, 10 tab prescribed. DISCHARGE INSTRUCTIONS: Please follow up with Dr. Chiang next week, please do not do drugs TIME SPENT: Greater than 30 minutes were spent on direct patient care, as well as discharge planning and preparation.
[2016-12-28 07:56] LABS: HEPATITIS Bs Ab QUANT 12.5 mIU/mL
== END 2016-12-26 13:41 | disposition home or self-care (01) | DRG 603 ==
LOC: INTOOBSV 21:32 → F3N 22:06 → OBSVTOIN 12-25 18:04
PROVIDERS: ADMIT Internal Medicine; ATTEND Internal Medicine
DX: L03.113 Cellulitis of right upper limb (principal); F11.20 Opioid dependence, uncomplicated; S51.841A Puncture wound with foreign body of right forearm, initial encounter; W46.0XXA Contact with hypodermic needle, initial encounter; M45.9 Ankylosing spondylitis of unspecified sites in spine; F41.9 Anxiety disorder, unspecified; F17.210 Nicotine dependence, cigarettes, uncomplicated; D72.829 Elevated white blood cell count, unspecified; K31.89 Other diseases of stomach and duodenum; Z88.1 Allergy status to other antibiotic agents; Z18.10 Retained metal fragments, unspecified; Y93.89 Activity, other specified
CPT/HCPCS: 86708-90; 96365; A9585; G0472; J1170; J1335; J2060; J3370

== ENCOUNTER 2017-01-04 17:12 | Emergency (ER) | payer OTHER ==
[2017-01-04 17:18] VITALS: RESP 16
[2017-01-04] MEDS ORDERED: LORazepam 1 MG TAB PO ONE (17:50)
--- NOTE | 2017-01-04 17:54 | EDPHY ---
H & P Stated Complaint: Recent cellulitis;still sick;increased anxiety;methadone w/d Time Seen by Provider: 01/04/17 17:19 HPI/ROS: CHIEF COMPLAINT: Abscess HISTORY OF PRESENT ILLNESS: Patient is a 31-year-old man with a history of IV drug abuse who comes to the emergency department complaining of abscess to his left antecubital region. He was admitted here last week for cellulitis to his right arm. He had an MRI that was negative for abscess. He was initially treated with IV antibiotics but discharged with Bactrim and azithromycin. He has done well and has cellulitis has improved. His antecubital region is fluctuate but not erythematous. He is also requesting Ativan cause he ran out of his Ativan and Xanax and does not have an appointment with his psychiatrist until next week. REVIEW OF SYSTEMS: Constitutional: denies: chills, fever, recent illness, recent injury EENTM: denies: blurred vision, double vision, nose congestion Respiratory: denies: cough, shortness of breath Cardiac: denies: chest pain, irregular heart rate, lightheadedness, palpitations Gastrointestinal/Abdominal: denies: abdominal pain, diarrhea, nausea, vomiting, blood streaked stools Genitourinary: denies: dysuria, frequency, hematuria, pain Musculoskeletal: denies: joint pain, muscle pain Skin: see HPI Neurological: denies: headache, numbness, paresthesia, tingling, dizziness, weakness Hematologic/Lymphatic: denies: blood clots, easy bleeding, easy bruising Immunologic/allergic: denies: HIV/AIDS, transplant EXAM: GENERAL: Well-appearing, well-nourished and in no acute distress. HEAD: Atraumatic, normocephalic. EYES: Pupils equal round and reactive to light, extraocular movements intact, sclera anicteric, conjunctiva are normal. ENT: TMs normal, nares patent, oropharynx clear without exudates. Moist mucous membranes. NECK: Normal range of motion, supple without lymphadenopathy or JVD. LUNGS: Breath sounds clear to auscultation bilaterally and equal. No wheezes rales or rhonchi. HEART: Regular rate and rhythm without murmurs, rubs or gallops. ABDOMEN: Soft, nontender, normoactive bowel sounds. No guarding, no rebound. No masses appreciated. BACK: No CVA tenderness, no spinal tenderness, step-offs or deformities EXTREMITIES: Normal range of motion, no pitting or edema. No clubbing or cyanosis. NEUROLOGICAL: Cranial nerves II through XII grossly intact. Normal speech, normal gait. 5/5 strength, normal movement in all extremities, normal sensation PSYCH: Normal mood, normal affect. SKIN: Left hand decubital abscess, small, not erythematous, fluctuant, right wrist erythema resolved, no fluctuance or abscess. Source: Patient Exam Limitations: No limitations - Medical/Surgical History Hx Asthma: No Hx Chronic Respiratory Disease: No Hx Diabetes: No Hx Cardiac Disease: No Hx Renal Disease: No Hx Cirrhosis: No Hx Alcoholism: No Hx HIV/AIDS: No Hx Splenectomy or Spleen Trauma: No Other PMH: IVDA , Ankylosing spondylitis Depression, Anxiety, appy, collar bone reset fx, bilat forearm fx's splinted, R thumb fx splinted, PTSD - Family History Significant Family History: No pertinent family hx - Social History Smoking Status: Current every day smoker Alcohol Use: Occasionally Drug Use: Heroin Constitutional: Initial Vital Signs Temperature (C) 36.9 C 01/04/17 17:14 Heart Rate 96 01/04/17 17:14 Respiratory Rate 16 01/04/17 17:14 Blood Pressure 110/67 01/04/17 17:14 O2 Sat (%) 92 01/04/17 17:14 O2 Delivery Mode Room Air Allergies/Adverse Reactions: azithromycin [From Zithromax] Allergy (Intermediate, Verified 01/04/17 17:13) Hives Home Medications: Medication Instructions Recorded ALPRAZolam [Xanax 1 MG (*)] 1 - 2 mg PO DAILY PRN 12/24/16 Gabapentin [Neurontin 300 MG (*)] 300 mg PO TID 12/24/16 Ibuprofen [Motrin (*)] 800 mg PO DAILY PRN 12/24/16 Loperamide HCl [Imodium 2 mg (*)] 2 mg PO PRN PRN 12/24/16 Methadone HCl [Methadone 5 mg (*)] 135 mg PO DAILY 12/24/16 Methocarbamol [Robaxin 500 mg (*)] 500 mg PO HS PRN 12/24/16 QUEtiapine FUMARATE [Seroquel 100 100 mg PO HS 12/24/16 mg (*)] traZODone [traZODONE 100MG (*)] 100 mg PO HS 12/24/16 Acetaminophen [Tylenol 325mg (*)] 650 mg PO Q4HRS PRN #0 tab 12/26/16 Amoxicillin/Clavulanate Pot 875 mg PO BID #15 tab 12/26/16 [Augmentin 875 MG TAB (*)] HYDROmorphone HCL [Dilaudid 4 mg 4 mg PO Q4 PRN #10 tab 12/26/16 (*)] Sulfamethox/Tmp 800/160 mg 1 tab PO BID #21 tab 12/26/16 [Bactrim Ds] LORazepam [Ativan 1 mg (RX)] 1 mg PO Q6-8PRN PRN #7 tab 01/04/17 Medical Decision Making Procedures: Procedure: Abscess drainage. The patient's abscess was located on the left antecubital. I obtained verbal consent from the patient to drain the abscess who was informed about the possibility of bleeding and pain. The abscess was incised with 11 blade scalpel and 2 cc of purulent drainage was expressed. I irrigated the wound and placed some packing. The patient tolerated the procedure well. The procedure was performed by myself. ED Course/Re-evaluation: I will treat the patient with a small dose of Ativan. He is quite anxious. I will also I and D his abscess. He also complains of chronic ankylosing spondylitis and back pain. I referred him to follow up with his regular physicians for this. Patient tolerated the procedure well. He is currently on antibiotics. I will refill his Ativan for short-term. Just before discharge the patient as the nurse if he could stay here for food and pain control. Nurse stated that this would be inappropriate. The patient then suggested that if he threatened suicide then he could stay here and be fed and have a warm bed. She discussed with him that this was inappropriate. He was discharged at this time. Differential Diagnosis: Partial list of the Differential diagnosis considered include but were not limited to; abscess, cellulitis, anxiety, chronic pain and although unlikely based on the history and physical exam, I also considered sepsis, fracture. I discussed these differential diagnoses and the plan with the patient as well as the usual and expected course. The patient understands that the diagnosis is provisional and that in medicine we are not always correct and that further workup is often warranted. Usual and customary warnings were given. All of the patient's questions were answered. The patient was instructed to return to the emergency department should the symptoms at all worsen or return, otherwise to followup with the physician as we discussed. - Data Points Medications Given: Discontinued Medications Lorazepam (Ativan) 2 mg PO EDNOW ONE Stop: 01/04/17 17:51 Last Admin: 01/04/17 17:56 Dose: 2 mg Departure - Departure Disposition: Home, Routine, Self-Care Clinical Impression: Abscess Condition: Fair Instructions: Abscess (ED) Additional Instructions: Your packing should be removed in 48 hours. Referrals: Benji Rodney MD [[facility] [place] Primary Care Provider] - As per Instructions Clement French MD [[facility] [place] Primary Care Provider] - As per Instructions Prescriptions: LORazepam [Ativan 1 mg (RX)] 1 mg PO Q6-8PRN PRN #7 tab PRN Reason: *Anxiety/Agitation/Insomnia
[2017-01-04 18:05] VITALS: BP 118/65; PULSE 82
[2017-01-04 18:41] VITALS: TEMP 98.2; O2SAT 93
== END 2017-01-04 18:41 | disposition home or self-care (01) ==
PROC: 0H9GXZZ Drainage of Left Hand Skin, External Approach (ICD-10-PCS; principal; 2017-01-04)
DX: L02.512 Cutaneous abscess of left hand (principal); F17.200 Nicotine dependence, unspecified, uncomplicated

== ENCOUNTER 2017-03-27 11:05 | Emergency (ER) | payer SELFPAY ==
--- NOTE | 2017-03-27 11:38 | CPEKG ---
Heart Rate: 50 RR Interval: 1200 P-R Interval: 108 QRSD Interval: 102 QT Interval: 532 QTC Interval: 486 P [place]: 14 QRS [place]: 83 T Wave [place]: 67 EKG Severity - ABNORMAL ECG - EKG Impression: SINUS ARRHYTHMIA, RATE 44-56 EKG Impression: SHORT OR INTERVAL, ACCELERATED AV CONDUCTION EKG Impression: PROBABLE LEFT VENTRICULAR HYPERTROPHY EKG Impression: LATERAL Q WAVES, PROBABLY NORMAL VARIATION EKG Impression: BORDERLINE PROLONGED QT INTERVAL Electronically Signed By: Nory Hunag 27-Mar-2017 14:54:08
--- NOTE | 2017-03-27 11:38 | CPEKG ---
Heart Rate: 50 RR Interval: 1200 P-R Interval: 108 QRSD Interval: 102 QT Interval: 532 QTC Interval: 486 P [place]: 14 QRS [place]: 83 T Wave [place]: 67 EKG Severity - ABNORMAL ECG - EKG Impression: SINUS ARRHYTHMIA, RATE 44-56 EKG Impression: SHORT CT INTERVAL, ACCELERATED AV CONDUCTION EKG Impression: PROBABLE LEFT VENTRICULAR HYPERTROPHY EKG Impression: LATERAL Q WAVES, PROBABLY NORMAL VARIATION EKG Impression: BORDERLINE PROLONGED QT INTERVAL Electronically Signed By: Nory Huang 27-Mar-2017 14:54:08
--- NOTE | 2017-03-27 11:38 | CPEKG ---
Heart Rate: 50 RR Interval: 1200 P-R Interval: 108 QRSD Interval: 102 QT Interval: 532 QTC Interval: 486 P [place]: 14 QRS [place]: 83 T Wave [place]: 67 EKG Severity - ABNORMAL ECG - EKG Impression: SINUS ARRHYTHMIA, RATE 44-56 EKG Impression: SHORT PA INTERVAL, ACCELERATED AV CONDUCTION EKG Impression: PROBABLE LEFT VENTRICULAR HYPERTROPHY EKG Impression: LATERAL Q WAVES, PROBABLY NORMAL VARIATION EKG Impression: BORDERLINE PROLONGED QT INTERVAL Electronically Signed By: Nory Huang 27-Mar-2017 14:54:08
[2017-03-27] MEDS ORDERED: NS 1,000 ML IV ONE (12:12)
[2017-03-27] MEDS ORDERED: ONDANSETRON 4 MG/2 ML VIAL IVP ONE (12:12)
[2017-03-27] MEDS ORDERED: LORazepam 2 MG/ML INJ IVP ONE ×2 (12:14→14:36)
[2017-03-27 12:31] LABS: PLATELET COUNT 244 10^3/uL (150-400)
[2017-03-27] MEDS ORDERED: METOCLOPRAMIDE 10 MG/2 ML VIAL IVP ONE (13:38)
[2017-03-27] MEDS ORDERED: IOPAMIDOL (ISOVUE-300) 100 ML BTL ONE (13:42)
--- NOTE | 2017-03-27 14:36 | EDPHY ---
H & P Stated Complaint: n/v/d unable to keep methadone down/chest/abd pain Time Seen by Provider: 03/27/17 12:00 HPI/ROS: Chief complaint: Nausea, vomiting and diarrhea History of present illness: This is a 31-year-old male who presents to the emergency department for evaluation nausea, vomiting and diarrhea. Patient reports the onset of symptoms over the last day. They have been persistent. He is concerned because he cannot keep down his medications, primarily his methadone. He reports he has associated discomfort throughout his chest and abdomen and diffuse body aches as well. He denies precipitating factors. He denies any alleviating factors, he has tried to take Zofran at home but he cannot keep it down. Review of systems: A 10 point review of systems was obtained and other than described above was negative - Personal History Current Tetanus/Diphtheria Vaccine: Yes - Medical/Surgical History Hx Asthma: No Hx Chronic Respiratory Disease: No Hx Diabetes: No Hx Cardiac Disease: No Hx Renal Disease: No Hx Cirrhosis: No Hx Alcoholism: No Hx HIV/AIDS: No Hx Splenectomy or Spleen Trauma: No Other PMH: IVDA , Ankylosing spondylitis Depression, Anxiety, appy, collar bone reset fx, bilat forearm fx's splinted, R thumb fx splinted, PTSD - Social History Smoking Status: Current every day smoker - Physical Exam Exam: General Appearance: Alert, appears uncomfortable, diffuse diaphoresis. Eyes: Pupils equal and round no pallor or injection. ENT, Mouth: Mucous membranes moist. Respiratory: There are no retractions, lungs are clear to auscultation. Cardiovascular: Regular rate and rhythm. Gastrointestinal: Bowel sounds normal. Abdomen is soft, nondistended, nontender to palpation. Neurological: Alert and oriented x4. Strength and sensation intact and symmetrical. Skin: Warm and dry, no rashes. Musculoskeletal: Neck is supple non tender. Extremities are symmetrical, full range of motion. Psychiatric: Patient is oriented X 3, there is no agitation. Constitutional: Initial Vital Signs Temperature (C) 36.6 C 03/27/17 11:11 Heart Rate 53 L 03/27/17 11:11 Respiratory Rate 22 H 03/27/17 11:11 Blood Pressure 131/78 H 03/27/17 11:11 O2 Sat (%) 100 03/27/17 11:11 O2 Delivery Mode Room Air O2 (L/minute) 2 Allergies/Adverse Reactions: azithromycin [From Zithromax] Allergy (Intermediate, Verified 03/27/17 11:08) Hives Home Medications: Medication Instructions Recorded ALPRAZolam [Xanax 1 MG (*)] 1 - 2 mg PO DAILY PRN 12/24/16 Gabapentin [Neurontin 300 MG (*)] 300 mg PO TID 12/24/16 Ibuprofen [Motrin (*)] 800 mg PO DAILY PRN 12/24/16 Methadone HCl [Methadone 5 mg (*)] 135 mg PO DAILY 12/24/16 Methocarbamol [Robaxin 500 mg (*)] 500 mg PO HS PRN 12/24/16 QUEtiapine FUMARATE [Seroquel 100 100 mg PO HS 12/24/16 mg (*)] traZODone [traZODONE 100MG (*)] 100 mg PO HS 12/24/16 LORazepam [Ativan 1 mg (RX)] 1 mg PO Q6-8PRN PRN #7 tab 01/04/17 Medical Decision Making - Diagnostics Imaging Results: Imaging Impressions Chest X-Ray 03/27/17 12:13 Impression: Clear lungs. No acute process. Abdomen CT 03/27/17 13:38 Impression: 1. Prior appendectomy. 2. No bowel obstruction, abscess, or inflammatory changes. 3. Otherwise unremarkable. Findings and recommendations discussed with Emergency Department physician, Calderon Moody PA-C at 1557 hours on March 27, 2017. Final report concurs with initial preliminary interpretation. Imaging: Discussed imaging studies w/ call center assistant Radiologist, I viewed and interpreted images myself ED Course/Re-evaluation: Patient is discussed with my primary supervising physician Dr. Nory Huang. Patient presents to the emergency department for evaluation of nausea vomiting and diarrhea with discomfort throughout the chest and abdomen and body aches. He is unwell appearing on presentation. Certainly I am concerned that he could be withdrawing from opioids. Blood studies are obtained, he has a significant leukocytosis, therefore imaging studies are obtained including chest x-ray and CT scan to ensure no other pathology, these are unremarkable. He has been IV hydrated. Treated with antiemetics, benzodiazepines and IV narcotics with improvement in symptoms. He is comfortable being discharged home. I will discharge him with orally dissolving Zofran and Phenergan suppositories which he has used in the past with good results. He is asked to use these in order to take his normal medications including his methadone. He is to follow up with his primary care doctor for recheck. Return precautions are given. Patient voiced understanding and agreement with plan. Differential Diagnosis: Included but not limited to infections of multiple etiologies including bronchitis, pneumonia, gastroenteritis, diverticulitis, colitis as well is withdrawal symptoms - Data Points Laboratory Results: Laboratory Results 03/27/17 11:20 03/27/17 11:20 03/27/17 03/27/17 03/27/17 12:36 11:20 11:20 WBC 20.06 10^3/uL H 10^3/uL (3.80-9.50) RBC 5.34 10^6/uL 10^6/uL (4.40-6.38) Hgb 16.8 g/dL g/dL (13.7-17.5) Hct 47.9 % % (40.0-51.0) MCV 89.7 fL fL (81.5-99.8) MCH 31.5 pg pg (27.9-34.1) MCHC 35.1 g/dL g/dL (32.4-36.7) RDW 13.5 % % (11.5-15.2) Plt Count 244 10^3/uL 10^3/uL (150-400) MPV 10.2 fL fL (8.7-11.7) Neut % (Auto) 88.6 % H % (39.3-74.2) Lymph % (Auto) 6.1 % L % (15.0-45.0) [place] % (Auto) 4.1 % L % (4.5-13.0) Eos % (Auto) 0.0 % L % (0.6-7.6) Baso % (Auto) 0.3 % % (0.3-1.7) Nucleat RBC Rel Count 0.0 % % (0.0-0.2) Absolute Neuts (auto) 17.77 10^3/uL H 10^3/uL (1.70-6.50) Absolute Lymphs (auto) 1.22 10^3/uL 10^3/uL (1.00-3.00) Absolute Monos (auto) 0.83 10^3/uL H 10^3/uL (0.30-0.80) Absolute Eos (auto) 0.00 10^3/uL L 10^3/uL (0.03-0.40) Absolute Basos (auto) 0.06 10^3/uL 10^3/uL (0.02-0.10) Absolute Nucleated RBC 0.00 10^3/uL 10^3/uL (0-0.01) Immature Gran % 0.9 % % (0.0-1.1) Immature Gran # 0.18 10^3/uL H 10^3/uL (0.00-0.10) Sodium 141 mEq/L mEq/L (134-144) Potassium 4.0 mEq/L mEq/L (3.5-5.2) Chloride 107 mEq/L mEq/L (97-110) Carbon Dioxide 19 mEq/l L mEq/l (22-31) Anion Gap 15 mEq/L mEq/L (8-16) BUN 12 mg/dL mg/dL (7-23) Creatinine 0.7 mg/dL mg/dL (0.7-1.3) Estimated GFR > 60 Glucose 200 mg/dL H mg/dL (70-100) Calcium 9.9 mg/dL mg/dL (8.5-10.4) Total Bilirubin 0.7 mg/dL mg/dL (0.1-1.4) Conjugated Bilirubin 0.2 mg/dL mg/dL (0.0-0.5) Unconjugated Bilirubin 0.5 mg/dL mg/dL (0.0-1.1) AST 30 IU/L IU/L (17-59) ALT 44 IU/L IU/L (21-72) Alkaline Phosphatase 87 IU/L IU/L (38-126) Troponin I < 0.012 ng/mL ng/mL (0.000-0.034) Total Protein 7.3 g/dL g/dL (6.3-8.2) Albumin 4.8 g/dL g/dL (3.5-5.0) Lipase 73 IU/L IU/L (23-300) Nasal Influenza A PCR NEGATIVE FOR FLU A (NEGATIVE) Nasal Influenza B PCR NEGATIVE FOR FLU B (NEGATIVE) Medications Given: Discontinued Medications Hydromorphone HCl (Dilaudid) 1 mg IVP EDNOW ONE Stop: 03/27/17 14:40 Last Admin: 03/27/17 14:55 Dose: 1 mg Hydromorphone HCl (Dilaudid) 1 mg IVP EDNOW ONE Stop: 03/27/17 16:04 Last Admin: 03/27/17 16:12 Dose: 1 mg Sodium Chloride (Ns) 1,000 mls @ 0 mls/hr IV EDNOW ONE; Wide Open PRN Reason: Protocol Stop: 03/27/17 12:13 Last Admin: 03/27/17 12:38 Dose: 1,000 mls Lorazepam (Ativan Injection) 1 mg IVP EDNOW ONE Stop: 03/27/17 12:15 Last Admin: 03/27/17 12:38 Dose: 1 mg Lorazepam (Ativan Injection) 2 mg IVP EDNOW ONE Stop: 03/27/17 14:37 Last Admin: 03/27/17 14:54 Dose: 1 mg Metoclopramide HCl (Reglan Injection) 10 mg IVP EDNOW ONE Stop: 03/27/17 13:39 Last Admin: 03/27/17 14:55 Dose: 10 mg Ondansetron HCl (Zofran) 4 mg IVP EDNOW ONE Stop: 03/27/17 12:13 Last Admin: 03/27/17 12:38 Dose: 4 mg Ondansetron HCl (Zofran Odt 4 Mg Prepack#2) 1 btl TAKEHOME EDNOW ONE Stop: 03/27/17 16:07 Last Admin: 03/27/17 16:38 Dose: 1 btl Promethazine HCl (Phenergan 25mg Supp Prepack#4) 1 btl TAKEHOME EDNOW ONE Stop: 03/27/17 16:07 Last Admin: 03/27/17 16:39 Dose: 1 btl Departure - Departure Disposition: Home, Routine, Self-Care Clinical Impression: Vomiting and diarrhea Leukocytosis Qualifiers: Leukocytosis type: unspecified Qualified Code(s): D72.829 - Elevated white blood cell count, unspecified Condition: Good Instructions: Ondansetron (By mouth), Promethazine (Into the rectum), Acute Nausea and Vomiting (ED), Acute Diarrhea (ED) Additional Instructions: Follow-up with your primary care doctor for recheck If symptoms worsen or new symptoms develop return to the emergency room for recheck Referrals: NONE *PRIMARY CARE P,. [Primary Care Provider] - As per Instructions Stand Alone Forms: Statement of Treatment
[2017-03-27] MEDS ORDERED: HYDROmorphONE/DILAUDID 1 MG/ML INJ IVP ONE ×2 (14:39→16:03)
[2017-03-27 16:01] VITALS: O2SAT 98
[2017-03-27] MEDS ORDERED: ONDANSETRON 4MG PREPACK#2 BTL TAKEHOME ONE (16:06)
[2017-03-27] MEDS ORDERED: PROMETHAZINE 25MG SUPP PREPK#4 BTL TAKEHOME ONE (16:06)
[2017-03-27 16:50] VITALS: BP 100/60; PULSE 61; RESP 16; TEMP 97.5
== END 2017-03-27 16:52 | disposition home or self-care (01) ==
DX: D72.829 Elevated white blood cell count, unspecified (principal); R11.10 Vomiting, unspecified; R19.7 Diarrhea, unspecified; F17.200 Nicotine dependence, unspecified, uncomplicated; E86.9 Volume depletion, unspecified
CPT/HCPCS: 96374; J1170; J2060; J2405; J2765; Q9967

== ENCOUNTER 2017-03-29 10:20 | Emergency (ER) | payer OTHER ==
[2017-03-29] MEDS ORDERED: HYDROmorphONE/DILAUDID 1 MG/ML INJ IVP ONE (10:32)
[2017-03-29] MEDS ORDERED: NS 1,000 ML IV ONE ×2 (10:32)
--- NOTE | 2017-03-29 10:32 | EDPHY ---
H & P Stated Complaint: N/V, sweating, chills, aches-hre 2 days ago, not getting better Time Seen by Provider: 03/29/17 10:31 HPI/ROS: HPI: This is a 31-year-old male who presents with Chief Complaint: N/V, sweating, chills, aches-hre 2 days ago, not getting better Location: Body Quality: Nausea vomiting Duration: 3 days Signs and Symptoms: no fever, no nausea, no vomiting, no hematemesis, no blood in stool, no abdominal bloating, no diarrhea, no back pain, no urinary symptoms , no testicular/groin pain, no indigestion, no chest pain, no shortness of breath Timing: Intermittent Severity: Moderate to severe Context: Patient is an IV drug user, currently on methadone, managed by the [facility] who re-presented to the emergency room after being here 2 days ago with continued nausea, vomiting several times per day, sweating, chills, and body aches. Patient originally had diarrhea but has had none since yesterday evening. Mother reports that patient just went to the clinic and had his methadone increased and took his methadone approximately 30 minutes prior to arrival. He takes methadone and clonidine every morning. ER visit 2 days ago patient had a negative chest x-ray and CT abdomen and pelvis scan; tested negative for influenza. Patient given Zofran ODT and Phenergan suppositories. Patient admits that he never filled Phenergan suppositories and did not use. Mother is concerned that he may have C diff colitis or [place] virus. Denies fever/headache/neck stiffness. Modifying Factors: See above Comment: ROS: see HPI Constitutional: No fever, no chills, no weight loss Eyes: No blurred vision Respiratory: No shortness of breath, no cough Cardiovascular: No chest pain, no palpitations Gastrointestinal: + nausea, + vomiting, no diarrhea, no hematemesis, no blood in stool Genitourinary: No dysuria, no blood in urine Extremities: No myalgias, no edema Neurologic: No weakness, no numbness Skin: No rashes, no petechiae Hematologic: No bruising, no bleeding MEDICAL/SURGICAL/SOCIAL HISTORY: Medical history: IVDA, Ankylosing spondylitis, Depression, Anxiety, bilateral forearm fx's splinted, R thumb fx splinted, PTSD Surgical history: collar bone reset fx, appendectomy Social history: Former IV drug user CONSTITUTIONAL: Adult white male who appears ill but nontoxic in appearance awake and alert, no obvious distress HEENT: Atraumatic and normocephalic, PERRL, EOMI. Tympanic membranes clear. Oropharynx clear, no exudate and dry oral mucosa with cracked lips; Airway patent. No lymphadenopathy. No meningismus. Cardiovascular: Normal S1/S2, regular rate, regular rhythm, without murmur rub or gallop. PULMONARY/CHEST: Symmetrical and nontender. Clear to auscultation bilaterally. Good air movement. No accessory muscle usage. ABDOMEN: Soft, nondistended, nontender, no rebound, no guarding, no peritoneal signs, no masses or organomegaly. No CVAT. EXTREMITIES: 2/2 pulses, strength 5/5, no deformities, no clubbing, no cyanosis or edema. NEUROLOGICAL: no focal neuro deficits. GCS 15. Shakiness noted. SKIN: Warm and dry, no erythema. no rash. Good capillary refill. Source: Patient Exam Limitations: No limitations - Personal History Current Tetanus/Diphtheria Vaccine: Yes Current Tetanus Diphtheria and Acellular Pertussis (TDAP): Yes Tetanus Vaccine Date: < 10 years - Medical/Surgical History Hx Asthma: No Hx Chronic Respiratory Disease: No Hx Diabetes: No Hx Cardiac Disease: No Hx Renal Disease: No Hx Cirrhosis: No Hx Alcoholism: No Hx HIV/AIDS: No Hx Splenectomy or Spleen Trauma: No Other PMH: IVDA , Ankylosing spondylitis Depression, Anxiety, appy, collar bone reset fx, bilat forearm fx's splinted, R thumb fx splinted, PTSD - Social History Smoking Status: Current every day smoker Constitutional: Initial Vital Signs Temperature (C) 37.1 C 03/29/17 10:22 Heart Rate 75 03/29/17 10:22 Respiratory Rate 20 03/29/17 10:22 Blood Pressure 129/81 H 03/29/17 10:22 O2 Sat (%) 97 03/29/17 10:22 O2 Delivery Mode Room Air Allergies/Adverse Reactions: azithromycin [From Zithromax] Allergy (Intermediate, Verified 03/29/17 10:21) Hives Home Medications: Medication Instructions Recorded ALPRAZolam [Xanax 1 MG (*)] 1 - 2 mg PO DAILY PRN 12/24/16 Gabapentin [Neurontin 300 MG (*)] 300 mg PO TID 12/24/16 Ibuprofen [Motrin (*)] 800 mg PO DAILY PRN 12/24/16 Methadone HCl [Methadone 5 mg (*)] 135 mg PO DAILY 12/24/16 Methocarbamol [Robaxin 500 mg (*)] 500 mg PO HS PRN 12/24/16 QUEtiapine FUMARATE [Seroquel 100 100 mg PO HS 12/24/16 mg (*)] traZODone [traZODONE 100MG (*)] 100 mg PO HS 12/24/16 LORazepam [Ativan 1 mg (RX)] 1 mg PO Q6-8PRN PRN #7 tab 01/04/17 LORazepam [Ativan (*)] 1 mg PO Q6 PRN #10 tab 03/29/17 Medical Decision Making ED Course/Re-evaluation: Labs, urinalysis, urine drug screen, IV fluids, IV medications ordered Due to the nausea and vomiting patient has not had a normal amount of methadone and system for several days; suspect withdrawal versus viral syndrome. COWS scale=7; mild withdrawal Given 2 L normal saline, IV Valium, IV Dilaudid 1 mg, IV promethazine 12.5 mg Patient is afebrile, no lactic acidosis. No signs of sepsis. 1211: Notified by nursing that patient has refused Valium as "does not work ". Requesting IV Ativan. IV Haldol 2.5 mg ordered after discussion with attending despite risk of QT prolongation with concomitant use with methadone 1234: Reviewed labs which show mild leukocytosis but greatly improved from 2 days prior. No signs of a KI, electrolyte imbalance, elevated LFTs CT UDS is positive for marijuana Urinalysis shows trace ketones. 1347: Reassessed patient who is sound asleep for the last 2 hours. Mother is not at bedside. Has p.o. trial prior to discharge. Has close follow-up appointment with methadone clinic in the a.m. Appropriate to discharge home with supportive care. Differential Diagnosis: Differential diagnosis includes but is not limited to opiate withdrawal, viral syndrome, electrolyte imbalance. - Data Points Laboratory Results: Laboratory Results 03/29/17 11:35 03/29/17 11:35 03/29/17 03/29/17 03/29/17 12:57 11:35 11:35 WBC 11.86 10^3/uL H D 10^3/uL (3.80-9.50) RBC 4.85 10^6/uL 10^6/uL (4.40-6.38) Hgb 15.4 g/dL g/dL (13.7-17.5) Hct 44.1 % % (40.0-51.0) MCV 90.9 fL fL (81.5-99.8) MCH 31.8 pg pg (27.9-34.1) MCHC 34.9 g/dL g/dL (32.4-36.7) RDW 13.3 % % (11.5-15.2) Plt Count 179 10^3/uL D 10^3/uL (150-400) MPV 10.2 fL fL (8.7-11.7) Neut % (Auto) 82.9 % H % (39.3-74.2) Lymph % (Auto) 11.3 % L % (15.0-45.0) [place] % (Auto) 4.7 % % (4.5-13.0) Eos % (Auto) 0.3 % L % (0.6-7.6) Baso % (Auto) 0.2 % L % (0.3-1.7) Nucleat RBC Rel Count 0.0 % % (0.0-0.2) Absolute Neuts (auto) 9.83 10^3/uL H 10^3/uL (1.70-6.50) Absolute Lymphs (auto) 1.34 10^3/uL 10^3/uL (1.00-3.00) Absolute Monos (auto) 0.56 10^3/uL 10^3/uL (0.30-0.80) Absolute Eos (auto) 0.04 10^3/uL 10^3/uL (0.03-0.40) Absolute Basos (auto) 0.02 10^3/uL 10^3/uL (0.02-0.10) Absolute Nucleated RBC 0.00 10^3/uL 10^3/uL (0-0.01) Immature Gran % 0.6 % % (0.0-1.1) Immature Gran # 0.07 10^3/uL 10^3/uL (0.00-0.10) VBG Lactic Acid Sodium 141 mEq/L mEq/L (134-144) Potassium 4.3 mEq/L mEq/L (3.5-5.2) Chloride 107 mEq/L mEq/L (97-110) Carbon Dioxide 22 mEq/l mEq/l (22-31) Anion Gap 12 mEq/L mEq/L (8-16) BUN 10 mg/dL mg/dL (7-23) Creatinine 0.6 mg/dL L mg/dL (0.7-1.3) Estimated GFR > 60 Glucose 110 mg/dL H mg/dL (70-100) Calcium 9.5 mg/dL mg/dL (8.5-10.4) Total Bilirubin 0.4 mg/dL mg/dL (0.1-1.4) Conjugated Bilirubin 0.0 mg/dL mg/dL (0.0-0.5) Unconjugated Bilirubin 0.4 mg/dL mg/dL (0.0-1.1) AST 28 IU/L IU/L (17-59) ALT 45 IU/L IU/L (21-72) Alkaline Phosphatase 72 IU/L IU/L (38-126) Total Protein 7.3 g/dL g/dL (6.3-8.2) Albumin 4.8 g/dL g/dL (3.5-5.0) Lipase 100 IU/L IU/L (23-300) Urine Color PALE YELLOW Urine Appearance CLEAR Urine pH 5.0 (5.0-7.5) Ur Specific [place] 1.004 (1.002-1.030) Urine Protein NEGATIVE (NEGATIVE) Urine Ketones TRACE H (NEGATIVE) Urine Blood NEGATIVE (NEGATIVE) Urine Nitrate NEGATIVE (NEGATIVE) Urine Bilirubin NEGATIVE (NEGATIVE) Urine Urobilinogen NEGATIVE EU EU (0.2-1.0) Ur Leukocyte Esterase NEGATIVE (NEGATIVE) Urine Glucose NEGATIVE (NEGATIVE) Urine Opiates Screen NEGATIVE (NEGATIVE) Urine Barbiturates NEGATIVE (NEGATIVE) Ur Phencyclidine Scrn NEGATIVE (NEGATIVE) Ur Amphetamine Screen NEGATIVE (NEGATIVE) U Benzodiazepines Scrn NEGATIVE (NEGATIVE) Urine Cocaine Screen NEGATIVE (NEGATIVE) U Marijuana (THC) Screen NON-NEGATIVE H (NEGATIVE) 03/29/17 11:34 WBC RBC Hgb Hct MCV MCH MCHC RDW Plt Count MPV Neut % (Auto) Lymph % (Auto) [place] % (Auto) Eos % (Auto) Baso % (Auto) Nucleat RBC Rel Count Absolute Neuts (auto) Absolute Lymphs (auto) Absolute Monos (auto) Absolute Eos (auto) Absolute Basos (auto) Absolute Nucleated RBC Immature Gran % Immature Gran # VBG Lactic Acid 1.0 mmol/L mmol/L (0.7-2.1) Sodium Potassium Chloride Carbon Dioxide Anion Gap BUN Creatinine Estimated GFR Glucose Calcium Total Bilirubin Conjugated Bilirubin Unconjugated Bilirubin AST ALT Alkaline Phosphatase Total Protein Albumin Lipase Urine Color Urine Appearance Urine pH Ur Specific [place] Urine Protein Urine Ketones Urine Blood Urine Nitrate Urine Bilirubin Urine Urobilinogen Ur Leukocyte Esterase Urine Glucose Urine Opiates Screen Urine Barbiturates Ur Phencyclidine Scrn Ur Amphetamine Screen U Benzodiazepines Scrn Urine Cocaine Screen U Marijuana (THC) Screen Medications Given: Discontinued Medications Diazepam (Valium) 5 mg PO EDNOW ONE Stop: 03/29/17 10:41 Last Admin: 03/29/17 12:08 Dose: Not Given Diazepam (Valium Injection) 5 mg IVP EDNOW ONE Stop: 03/29/17 12:54 Last Admin: 03/29/17 13:00 Dose: 5 mg Haloperidol Lactate (Haldol Injection) 2.5 mg IVP EDNOW ONE Stop: 03/29/17 12:12 Last Admin: 03/29/17 12:59 Dose: 2.5 mg Hydromorphone HCl (Dilaudid) 1 mg IVP EDNOW ONE Stop: 03/29/17 10:33 Last Admin: 03/29/17 14:49 Dose: Not Given Sodium Chloride (Ns) 1,000 mls @ 0 mls/hr IV EDNOW ONE; Wide Open PRN Reason: Protocol Stop: 03/29/17 10:33 Last Admin: 03/29/17 11:35 Dose: 1,000 mls Sodium Chloride (Ns) 1,000 mls @ 0 mls/hr IV EDNOW ONE; Wide Open PRN Reason: Protocol Stop: 03/29/17 10:33 Last Admin: 03/29/17 11:57 Dose: 1,000 mls Promethazine HCl (Phenergan) 12.5 mg IVP ONCE ONE Stop: 03/29/17 10:41 Last Admin: 03/29/17 11:55 Dose: 12.5 mg Departure - Departure Disposition: Home, Routine, Self-Care Clinical Impression: Chronic prescription opiate use, Opiate withdrawal Condition: Fair Instructions: Opioid Withdrawal (ED) Additional Instructions: Continue to use Zofran and/or Phenergan suppository as needed for nausea, vomiting. Follow up with methadone clinic tomorrow. Referrals: [facility],. [Clinic] - As per Instructions Prescriptions: LORazepam [Ativan (*)] 1 mg PO Q6 PRN #10 tab PRN Reason: Anxiety
[2017-03-29] MEDS ORDERED: PROMETHAZINE HCL 25 MG/ML INJ IVP ONE (10:40)
[2017-03-29] MEDS ORDERED: DIAZEPAM 5 MG TAB PO ONE (10:40)
[2017-03-29 11:48] LABS: % IMMATURE GRANULYOCYTES 0.6 % (0.0-1.1); ABSOLUTE IMMATURE GRANULOCYTES 0.07 10^3/uL (0.00-0.10); ADD DIFF? NO; ADD MORPH? NO; ADD SCAN? NO; ATYPICAL LYMPHOCYTE FLAG 0 (0-99); FRAGMENT RBC FLAG 0 (0-99); HEMATOCRIT 44.1 % (40.0-51.0); HEMOGLOBIN 15.4 g/dL (13.7-17.5); LEFT SHIFT FLG 0 (0-99); LIPEMIA HEMOLYSIS FLAG 90 (0-99); MEAN CELL HEMOGLOBIN 31.8 pg (27.9-34.1); MEAN CELL HEMOGLOBIN CONCENTR. 34.9 g/dL (32.4-36.7); MEAN CELL VOLUME 90.9 fL (81.5-99.8); MEAN PLATELET VOLUME 10.2 fL (8.7-11.7); PLATELET CLUMPS FLAG 0 (0-99); PLATELET COUNT 179 10^3/uL (150-400); RED BLOOD CELL COUNT 4.85 10^6/uL (4.40-6.38); RED CELL DISTRIBUTION WIDTH 13.3 % (11.5-15.2)
[2017-03-29 12:01] LABS: ALANINE AMINOTRANSFERASE 45 IU/L (21-72); ALBUMIN 4.8 g/dL (3.5-5.0); ALKALINE PHOSPHATASE 72 IU/L (38-126); ANION GAP 12 mEq/L (8-16); ASPARTATE AMINOTRANSFERASE 28 IU/L (17-59); BILIRUBIN,TOTAL 0.4 mg/dL (0.1-1.4); BILIRUBIN-UNCONJUGATED 0.4 mg/dL (0.0-1.1); CALCIUM 9.5 mg/dL (8.5-10.4); CARBON DIOXIDE 22 mEq/l (22-31); CHLORIDE 107 mEq/L (97-110); CREATININE 0.6 mg/dL (0.7-1.3); GLOMERULAR FILTRATION RATE > 60; GLUCOSE 110 mg/dL (70-100); POTASSIUM 4.3 mEq/L (3.5-5.2); SODIUM 141 mEq/L (134-144); TOTAL PROTEIN 7.3 g/dL (6.3-8.2)
[2017-03-29] MEDS ORDERED: HALOPERIDOL LACT 5 MG/ML INJ IVP ONE (12:11)
[2017-03-29] MEDS ORDERED: DIAZEPAM 10 MG/2 ML SYR IVP ONE (12:53)
[2017-03-29 13:12] VITALS: O2SAT 95
[2017-03-29 13:21] LABS: COLOR PALE YELLOW; LEUKOCYTE ESTERASE,URINE NEGATIVE (NEGATIVE); NITRITE,URINE NEGATIVE (NEGATIVE)
[2017-03-29 14:51] VITALS: BP 123/79; PULSE 50; RESP 16; TEMP 97.9
== END 2017-03-29 14:59 | disposition home or self-care (01) ==
DX: F11.23 Opioid dependence with withdrawal (principal); E86.9 Volume depletion, unspecified; F17.200 Nicotine dependence, unspecified, uncomplicated
CPT/HCPCS: 80305; 96374; J2550

== ENCOUNTER 2017-04-25 11:32 | Emergency (ER) | payer SELFPAY ==
[2017-04-25 11:37] VITALS: RESP 18; TEMP 98.6
[2017-04-25] MEDS ORDERED: LORazepam 2 MG/ML INJ IVP ONE (11:49)
[2017-04-25] MEDS ORDERED: METOCLOPRAMIDE 10 MG/2 ML VIAL IVP ONE (11:49)
--- NOTE | 2017-04-25 11:56 | EDPHY ---
H & P Stated Complaint: etoh/n/v Time Seen by Provider: 04/25/17 11:41 HPI/ROS: CHIEF COMPLAINT: Nausea vomiting, anxiety HISTORY OF PRESENT ILLNESS: 31-year-old male arrives by ambulance from the methadone clinic where he developed sudden onset of nausea, vomiting, anxiety. No abdominal pain. No headache. No back or flank pain. States that he started drinking heavy amounts of alcohol recently, last drink of alcohol last evening. Denies hallucination. No seizure. No incontinence. PRIMARY CARE PROVIDER: REVIEW OF SYSTEMS: A ten point review of systems was performed and is negative with the exception of the items mentioned in the HPI PAST MEDICAL & SURGICAL HISTORY: History of opiate abuse currently on methadone therapy. History recent alcohol use. SOCIAL HISTORY: last drink of alcohol last evening PHYSICAL EXAM (Prior to examination, patient consented to physical exam, hands were washed and my usual and customary physical exam procedures followed) 1) GENERAL: Well-developed, well-nourished, alert and oriented. Appears anxious. . 2) HEAD: Normocephalic, atraumatic 3) HEENT: Pupils equal, round, reactive to light bilaterally. Sclera anicteric. Nasopharynx, oropharynx, clear, no lesions. No oral trauma. Dry mucous membrane Ears bilaterally with normal tympanic membranes. 4) NECK: Full range of motion, no meningeal signs. 5) LUNGS: Clear auscultation bilaterally, no wheezes, no rhonchi, no retractions. 6) HEART: Regular rate and rhythm, no murmur, no heave, no gallop. 7) ABDOMEN: No guarding, no rebound, no focal tenderness, negative McBurney's, negative Zhang's, negative Rovsing's, negative peritoneal sign, unable to elicit any abdominal pain on exam 8) MUSCULOSKELETAL: Moving all extremities, no focal areas of tenderness, no obvious trauma. No peripheral edema or discoloration. 9) BACK: No CVA tenderness, no midline vertebral tenderness, no fluctuance, no step-off, no obvious trauma, no visual or palpable abnormality. 10) SKIN: No rash, no petechiae. 11) Psychiatric: Patient is oriented X 3, there is no agitation. DIFFERENTIAL DIAGNOSIS: in no particular include but limited to acute anxiety, alcohol withdrawal, opiate withdrawal - Personal History Tetanus Vaccine Date: < 10 years - Medical/Surgical History Hx Asthma: No Hx Chronic Respiratory Disease: No Hx Diabetes: No Hx Cardiac Disease: No Hx Renal Disease: No Hx Cirrhosis: No Hx Alcoholism: No Hx HIV/AIDS: No Hx Splenectomy or Spleen Trauma: No Other PMH: IVDA , Ankylosing spondylitis Depression, Anxiety, appy, collar bone reset fx, bilat forearm fx's splinted, R thumb fx splinted, PTSD - Social History Smoking Status: Current every day smoker Constitutional: Initial Vital Signs Temperature (C) 37.0 C 04/25/17 11:34 Heart Rate 57 L 04/25/17 11:34 Respiratory Rate 18 04/25/17 11:34 Blood Pressure 151/87 H 04/25/17 11:34 O2 Sat (%) 100 04/25/17 11:34 O2 Delivery Mode Room Air Allergies/Adverse Reactions: azithromycin [From Zithromax] Allergy (Intermediate, Verified 04/25/17 15:09) Hives Home Medications: Medication Instructions Recorded ALPRAZolam [Xanax 1 MG (*)] 1 - 2 mg PO DAILY PRN 12/24/16 Gabapentin [Neurontin 300 MG (*)] 300 mg PO TID 12/24/16 Ibuprofen [Motrin (*)] 800 mg PO DAILY PRN 12/24/16 Methadone HCl [Methadone 5 mg (*)] 135 mg PO DAILY 12/24/16 Methocarbamol [Robaxin 500 mg (*)] 500 mg PO HS PRN 12/24/16 QUEtiapine FUMARATE [Seroquel 100 100 mg PO HS 12/24/16 mg (*)] traZODone [traZODONE 100MG (*)] 100 mg PO HS 12/24/16 LORazepam [Ativan 1 mg (RX)] 1 mg PO Q6-8PRN PRN #7 tab 01/04/17 LORazepam [Ativan (*)] 1 mg PO Q6 PRN #10 tab 03/29/17 LORazepam [Ativan 1 mg (RX)] 1 mg PO Q6 PRN #3 tab 04/25/17 Medical Decision Making ED Course/Re-evaluation: 11:55 a.m.: Care of patient under supervision of secondary supervising physician Dr Huang . 1:55 p.m.: Re-evaluation, is feeling improvement. Abdomen re-examined which is soft no guarding no rebound. Doubt acute surgical abdominal pathology. Doubt acute pancreatitis. Doubt acute appendicitis. Use complaining of acute anxiety which he states has decreased since parental Ativan administered. He did not receive his daily methadone, is planning return to methadone clinic tomorrow. He is complaining of return of his back pain. Plan will be a single dose of analgesia in the emergency department prior to discharge for his back pain . Usual and customary discharge precautions instructions provided. Patient and mother feel comfortable being discharged - Data Points Laboratory Results: Laboratory Results 04/25/17 13:00 04/25/17 12:00 04/25/17 04/25/17 04/25/17 13:00 12:00 12:00 WBC 13.56 10^3/uL H 10^3/uL REJ (3.80-9.50) RBC 3.53 10^6/uL L 10^6/uL TNP (4.40-6.38) Hgb 11.2 g/dL L g/dL TNP (13.7-17.5) Hct 32.8 % L % TNP (40.0-51.0) MCV 92.9 fL fL TNP (81.5-99.8) MCH 31.7 pg pg TNP (27.9-34.1) MCHC 34.1 g/dL g/dL TNP (32.4-36.7) RDW 12.7 % % TNP (11.5-15.2) Plt Count 143 10^3/uL L 10^3/uL TNP (150-400) MPV 10.4 fL fL TNP (8.7-11.7) Neut % (Auto) 87.0 % H % TNP (39.3-74.2) Lymph % (Auto) 6.5 % L % TNP (15.0-45.0) [place] % (Auto) 5.5 % % TNP (4.5-13.0) Eos % (Auto) 0.1 % L % TNP (0.6-7.6) Baso % (Auto) 0.2 % L % TNP (0.3-1.7) Nucleat RBC Rel Count 0.0 % % TNP (0.0-0.2) Absolute Neuts (auto) 11.80 10^3/uL H 10^3/uL TNP (1.70-6.50) Absolute Lymphs (auto) 0.88 10^3/uL L 10^3/uL TNP (1.00-3.00) Absolute Monos (auto) 0.74 10^3/uL 10^3/uL TNP (0.30-0.80) Absolute Eos (auto) 0.01 10^3/uL L 10^3/uL TNP (0.03-0.40) Absolute Basos (auto) 0.03 10^3/uL 10^3/uL TNP (0.02-0.10) Absolute Nucleated RBC 0.00 10^3/uL 10^3/uL TNP (0-0.01) Immature Gran % 0.7 % % TNP (0.0-1.1) Immature Gran # 0.10 10^3/uL 10^3/uL TNP (0.00-0.10) Sodium 141 mEq/L mEq/L (134-144) Potassium 4.2 mEq/L mEq/L (3.5-5.2) Chloride 106 mEq/L mEq/L (97-110) Carbon Dioxide 18 mEq/l L mEq/l (22-31) Anion Gap 17 mEq/L H mEq/L (8-16) BUN 11 mg/dL mg/dL (7-23) Creatinine 0.6 mg/dL L mg/dL (0.7-1.3) Estimated GFR > 60 Glucose 128 mg/dL H mg/dL (70-100) Calcium 9.1 mg/dL mg/dL (8.5-10.4) Total Bilirubin 1.0 mg/dL mg/dL (0.1-1.4) Conjugated Bilirubin 0.6 mg/dL H mg/dL (0.0-0.5) Unconjugated Bilirubin 0.4 mg/dL mg/dL (0.0-1.1) AST 49 IU/L IU/L (17-59) ALT 37 IU/L IU/L (21-72) Alkaline Phosphatase 72 IU/L IU/L (38-126) Total Protein 7.2 g/dL g/dL (6.3-8.2) Albumin 4.4 g/dL g/dL (3.5-5.0) Lipase 153 IU/L IU/L (23-300) Specimen Hemolysis 102 Medications Given: Discontinued Medications Hydromorphone HCl (Dilaudid) 1 mg IVP EDNOW ONE Stop: 04/25/17 13:56 Last Admin: 04/25/17 14:02 Dose: 1 mg Lorazepam (Ativan Injection) 1 mg IVP EDNOW ONE Stop: 04/25/17 11:50 Last Admin: 04/25/17 11:55 Dose: 1 mg Lorazepam (Ativan) 1 mg PO EDNOW ONE Stop: 04/25/17 14:33 Last Admin: 04/25/17 14:35 Dose: 1 mg Lorazepam (Ativan) 1 mg PO EDNOW ONE Stop: 04/25/17 14:34 Last Admin: 04/25/17 14:35 Dose: Not Given Metoclopramide HCl (Reglan Injection) 10 mg IVP EDNOW ONE Stop: 04/25/17 11:50 Last Admin: 04/25/17 11:55 Dose: 10 mg Departure - Departure Disposition: Home, Routine, Self-Care Clinical Impression: Anxiety Chronic back pain Qualifiers: Back pain location: low back pain Back pain laterality: midline Sciatica presence: without sciatica Qualified Code(s): M54.5 - Low back pain Condition: Good Instructions: Chronic Back Pain (ED), Anxiety (ED) Additional Instructions: Keep your appointment at the methadone clinic tomorrow Referrals: Keep, your methadone appointment clinic tomorrow morning [Other] - As per Instructions Prescriptions: LORazepam [Ativan 1 mg (RX)] 1 mg PO Q6 PRN #3 tab PRN Reason: Anxiety
[2017-04-25] MEDS ORDERED: METOCLOPRAMIDE 10 MG/2 ML VIAL ONE (11:57)
[2017-04-25 12:12] LABS: ADD DIFF? NO; ADD SCAN? YES
[2017-04-25 12:19] LABS: ALANINE AMINOTRANSFERASE 37 IU/L (21-72); ALBUMIN 4.4 g/dL (3.5-5.0); ALKALINE PHOSPHATASE 72 IU/L (38-126); ANION GAP 17 mEq/L (8-16); ASPARTATE AMINOTRANSFERASE 49 IU/L (17-59); BILIRUBIN-CONJUGATED 0.6 mg/dL (0.0-0.5); BILIRUBIN-UNCONJUGATED 0.4 mg/dL (0.0-1.1); CALCIUM 9.1 mg/dL (8.5-10.4); CARBON DIOXIDE 18 mEq/l (22-31); CHLORIDE 106 mEq/L (97-110); CREATININE 0.6 mg/dL (0.7-1.3); GLOMERULAR FILTRATION RATE > 60; GLUCOSE 128 mg/dL (70-100); POTASSIUM 4.2 mEq/L (3.5-5.2); SODIUM 141 mEq/L (134-144); SPECIMEN HEMOLYSIS 102; TOTAL PROTEIN 7.2 g/dL (6.3-8.2)
[2017-04-25 12:43] LABS: ADD MORPH? NO
[2017-04-25 13:15] LABS: % IMMATURE GRANULYOCYTES 0.7 % (0.0-1.1); ADD DIFF? NO; ADD MORPH? NO; ADD SCAN? NO; ATYPICAL LYMPHOCYTE FLAG 0 (0-99); FRAGMENT RBC FLAG 0 (0-99); HEMATOCRIT 32.8 % (40.0-51.0); HEMOGLOBIN 11.2 g/dL (13.7-17.5); LEFT SHIFT FLG 0 (0-99); LIPEMIA HEMOLYSIS FLAG 90 (0-99); MEAN CELL HEMOGLOBIN 31.7 pg (27.9-34.1); MEAN CELL HEMOGLOBIN CONCENTR. 34.1 g/dL (32.4-36.7); MEAN CELL VOLUME 92.9 fL (81.5-99.8); MEAN PLATELET VOLUME 10.4 fL (8.7-11.7); PLATELET CLUMPS FLAG 0 (0-99); PLATELET COUNT 143 10^3/uL (150-400); RED BLOOD CELL COUNT 3.53 10^6/uL (4.40-6.38); RED CELL DISTRIBUTION WIDTH 12.7 % (11.5-15.2)
[2017-04-25] MEDS ORDERED: HYDROmorphONE/DILAUDID 1 MG/ML INJ IVP ONE (13:55)
[2017-04-25 14:03] VITALS: BP 129/72; PULSE 88; O2SAT 94
[2017-04-25] MEDS ORDERED: LORazepam 1 MG TAB PO ONE ×2 (14:32→14:33)
== END 2017-04-25 15:11 | disposition home or self-care (01) ==
LOC: EDUNIT#
DX: F41.9 Anxiety disorder, unspecified (principal); M54.5 Low back pain; F17.200 Nicotine dependence, unspecified, uncomplicated
CPT/HCPCS: 96374; J1170; J2060; J2765

== ENCOUNTER 2017-04-25 15:05 | Emergency (ER) | payer SELFPAY ==
[2017-04-25] MEDS ORDERED: HALOPERIDOL LACT 5 MG/ML INJ IM ONE (15:08)
[2017-04-25] MEDS ORDERED: PROMETHAZINE HCL 25 MG/ML INJ IM ONE (15:09)
[2017-04-25 15:12] VITALS: BP 153/87; TEMP 97.7
--- NOTE | 2017-04-25 15:17 | EDPHY ---
H & P Time Seen by Provider: 04/25/17 15:08 HPI/ROS: CHIEF COMPLAINT: Return of anxiety, vomiting HISTORY OF PRESENT ILLNESS: 31-year-old male was just discharged from the emergency department for evaluation of anxiety, vomiting, had laboratory studies performed by myself and was feeling well upon discharge, returns to the ER few minutes later stating that upon getting into his mother's car he had return of shaking, feeling numbness in his hands, feet, back and nausea and retching. No abdominal pain. No fever or chills. No headache. No hallucination. No seizure. REVIEW OF SYSTEMS: A ten point review of systems was performed and is negative with the exception of the items mentioned in the HPI PAST MEDICAL & SURGICAL HISTORY: Methadone use SOCIAL HISTORY: history of alcohol abuse. PHYSICAL EXAM (Prior to examination, patient consented to physical exam, hands were washed and my usual and customary physical exam procedures followed) 1) GENERAL: Well-developed, well-nourished, alert and oriented. Appears uncomfortable, anxious, retching 2) HEAD: Normocephalic, atraumatic 3) HEENT: Pupils equal, round, reactive to light bilaterally. Sclera anicteric. 4) NECK: Full range of motion, no meningeal signs. 5) LUNGS: Clear auscultation bilaterally, no wheezes, no rhonchi, no retractions. 6) HEART: Regular rate and rhythm, no murmur, no heave, no gallop. 7) ABDOMEN: No guarding, no rebound, no focal tenderness, 8) MUSCULOSKELETAL: Moving all extremities, no focal areas of tenderness, no obvious trauma. No peripheral edema or discoloration. 9) BACK: no visual or palpable abnormality. 10) SKIN: No rash, no petechiae. 11) Psychiatric: Patient is oriented X 3, there is no agitation. DIFFERENTIAL DIAGNOSIS: in no particular include but limited to cyclic vomiting, cannabis hyperemesis, anxiety Smoking Status: Current every day smoker Constitutional: Initial Vital Signs Temperature (C) 36.5 C 04/25/17 15:10 Heart Rate 78 04/25/17 15:10 Respiratory Rate 19 04/25/17 15:10 Blood Pressure 153/87 H 04/25/17 15:10 O2 Sat (%) 98 04/25/17 15:10 O2 Delivery Mode Room Air Allergies/Adverse Reactions: azithromycin [From Zithromax] Allergy (Intermediate, Verified 04/25/17 15:09) Hives Home Medications: Medication Instructions Recorded ALPRAZolam [Xanax 1 MG (*)] 1 - 2 mg PO DAILY PRN 12/24/16 Gabapentin [Neurontin 300 MG (*)] 300 mg PO TID 12/24/16 Ibuprofen [Motrin (*)] 800 mg PO DAILY PRN 12/24/16 Methadone HCl [Methadone 5 mg (*)] 135 mg PO DAILY 12/24/16 Methocarbamol [Robaxin 500 mg (*)] 500 mg PO HS PRN 12/24/16 QUEtiapine FUMARATE [Seroquel 100 100 mg PO HS 12/24/16 mg (*)] traZODone [traZODONE 100MG (*)] 100 mg PO HS 12/24/16 LORazepam [Ativan 1 mg (RX)] 1 mg PO Q6-8PRN PRN #7 tab 01/04/17 LORazepam [Ativan (*)] 1 mg PO Q6 PRN #10 tab 03/29/17 LORazepam [Ativan 1 mg (RX)] 1 mg PO Q6 PRN #3 tab 04/25/17 Promethazine HCl [Phenergan] 25 mg PO Q6 #7 tab 04/25/17 MDM/Departure - MDM Medications Given: Discontinued Medications Haloperidol Lactate (Haldol Injection) 2.5 mg IM EDNOW ONE Stop: 04/25/17 15:09 Last Admin: 04/25/17 15:20 Dose: 2.5 mg Promethazine HCl (Phenergan) 25 mg IM EDNOW ONE Stop: 04/25/17 15:10 Last Admin: 04/25/17 15:20 Dose: 25 mg ED Course/Re-evaluation: 3:16 p.m.: This patient was previously seen the ER by myself and it was difficult to establish IV placement , EMS had placed an external jugular. I do not think that IV hydration is currently indicated. My plan at this time is IM Haldol and IM antiemetic and re-evaluation. At this time, doubt acute surgical abdominal pathology, acute appendicitis, acute pancreatitis acute cholecystitis. 3:57 p.m.: Re-evaluation after IM Haldol and IM antiemetic. He is feeling improvement in symptoms, he appears calm at this time, retching has resolved. We discussed possible etiologies for symptoms including, not limited to, methadone withdrawal. He did not receive his methadone in clinic today. the methadone clinic specifically asked that he not receive methadone in the ER. I recommend he keep his methadone clinic appointment tomorrow morning. In the meantime should she develop new or worsening symptoms to return to the ER immediately for re-evaluation. - Depart Disposition: Home, Routine, Self-Care Clinical Impression: Nausea & vomiting Qualifiers: Vomiting type: unspecified Vomiting Intractability: non-intractable Qualified Code(s): R11.2 - Nausea with vomiting, unspecified Condition: Good Instructions: Acute Nausea and Vomiting (ED) Additional Instructions: Seek immediate medical attention if you develop new or worsening symptoms, if you develop fevers, chills, inability to tolerate oral intake or any other symptoms that concerns you. Keep your appointment at your methadone clinic tomorrow Prescriptions: Promethazine HCl [Phenergan] 25 mg PO Q6 #7 tab Referrals: Benji Rodney MD [[facility] Primary Care Provider] - 1-2 days without fail
[2017-04-25 16:10] VITALS: PULSE 85; RESP 18; O2SAT 95
== END 2017-04-25 16:10 | disposition home or self-care (01) ==
DX: R11.2 Nausea with vomiting, unspecified (principal); F17.200 Nicotine dependence, unspecified, uncomplicated
CPT/HCPCS: J2550

== ENCOUNTER 2017-05-18 17:20 | Emergency (ER) | payer MEDICAID ==
[2017-05-18] MEDS ORDERED: HALOPERIDOL LACT 5 MG/ML INJ IVP ONE (17:53)
[2017-05-18] MEDS ORDERED: ONDANSETRON 4 MG/2 ML VIAL IVP ONE (17:53)
--- NOTE | 2017-05-18 17:55 | EDPHY ---
H & P Stated Complaint: N/V for 3-4 days, has anxiety and tremors. Time Seen by Provider: 05/18/17 17:37 HPI/ROS: Chief Complaint: Nausea, vomiting, anxiety HPI: 31-year-old male with a history of IV drug abuse, recovery. He is currently on methadone. Patient is also usually taking gabapentin and Zofran. Patient states he ran out of his gabapentin for several days until yesterday. Today he has had worsening anxiety nausea and vomiting. Patient states this is similar to prior episodes when he has run out of his medications. Denies any fevers or chills. No abdominal pain. No diarrhea. No chest pain or shortness of breath. He has been taking his methadone regularly and has been keeping it down. ROS: 10 point Review of Systems is negative except as noted in the HPI. PMH: IV drug abuse, recovering Social History: Denies smoking Family History: non-contributory Physical Exam: Gen: Awake, Alert, No Distress HEENT: Nose: no rhinorrhea Eyes: PERRLA, EOMI Mouth: Moist mucosa Neck: Supple, no JVD Chest: nontender, lungs clear to auscultation Heart: S1, S2 normal, no murmur Abd: Soft, non-tender, no guarding Back: no CVA tenderness, no midline tenderness Ext: no edema, non-tender Skin: no rash Neuro: CN II-XII intact, Sensation grossly intact, Strength 5/5 in bilateral upper and lower extremities - Personal History Current Tetanus Diphtheria and Acellular Pertussis (TDAP): Yes Tetanus Vaccine Date: < 10 years - Medical/Surgical History Hx Asthma: No Hx Chronic Respiratory Disease: No Hx Diabetes: No Hx Cardiac Disease: No Hx Renal Disease: No Hx Cirrhosis: No Hx Alcoholism: No Hx HIV/AIDS: No Hx Splenectomy or Spleen Trauma: No Other PMH: IVDA , Ankylosing spondylitis Depression, Anxiety, appy, collar bone reset fx, bilat forearm fx's splinted, R thumb fx splinted, PTSD - Social History Smoking Status: Current every day smoker Constitutional: Initial Vital Signs Temperature (C) 37.1 C 05/18/17 17:27 Heart Rate 91 05/18/17 17:27 Respiratory Rate 18 05/18/17 17:27 Blood Pressure 150/96 H 05/18/17 17:27 O2 Sat (%) 95 05/18/17 17:27 O2 Delivery Mode Room Air Allergies/Adverse Reactions: azithromycin [From Zithromax] Allergy (Intermediate, Verified 04/25/17 15:09) Hives Home Medications: Medication Instructions Recorded ALPRAZolam [Xanax 1 MG (*)] 1 - 2 mg PO DAILY PRN 12/24/16 Gabapentin [Neurontin 300 MG (*)] 300 mg PO TID 12/24/16 Ibuprofen [Motrin (*)] 800 mg PO DAILY PRN 12/24/16 Methadone HCl [Methadone 5 mg (*)] 135 mg PO DAILY 12/24/16 Methocarbamol [Robaxin 500 mg (*)] 500 mg PO HS PRN 12/24/16 QUEtiapine FUMARATE [Seroquel 100 100 mg PO HS 12/24/16 mg (*)] traZODone [traZODONE 100MG (*)] 100 mg PO HS 12/24/16 LORazepam [Ativan 1 mg (RX)] 1 mg PO Q6-8PRN PRN #7 tab 01/04/17 LORazepam [Ativan (*)] 1 mg PO Q6 PRN #10 tab 03/29/17 LORazepam [Ativan 1 mg (RX)] 1 mg PO Q6 PRN #3 tab 04/25/17 Promethazine HCl [Phenergan] 25 mg PO Q6 #7 tab 04/25/17 Medical Decision Making ED Course/Re-evaluation: Patient is improved after Zofran and fluids and Haldol. He is tolerating p.o. he will resume his usual medications. Will discharge with follow-up as an outpatient. - Data Points Laboratory Results: Laboratory Results 05/18/17 17:44 05/18/17 17:44 Sodium 138 mEq/L mEq/L (134-144) Potassium 4.3 mEq/L mEq/L (3.5-5.2) Chloride 105 mEq/L mEq/L (97-110) Carbon Dioxide 21 mEq/l L mEq/l (22-31) Anion Gap 12 mEq/L mEq/L (8-16) BUN 13 mg/dL mg/dL (7-23) Creatinine 0.7 mg/dL mg/dL (0.7-1.3) Estimated GFR > 60 Glucose 108 mg/dL H mg/dL (70-100) Calcium 10.0 mg/dL mg/dL (8.5-10.4) Medications Given: Discontinued Medications Haloperidol Lactate (Haldol Injection) 2.5 mg IVP EDNOW ONE Stop: 05/18/17 17:54 Last Admin: 05/18/17 17:56 Dose: 2.5 mg Sodium Chloride (Ns) 1,000 mls @ 0 mls/hr IV ONCE ONE PRN Reason: Wide Open Stop: 05/18/17 18:21 Last Admin: 05/18/17 18:21 Dose: 1,000 mls Ondansetron HCl (Zofran) 4 mg IVP EDNOW ONE Stop: 05/18/17 17:54 Last Admin: 05/18/17 17:57 Dose: 4 mg Departure - Departure Disposition: Home, Routine, Self-Care Clinical Impression: Vomiting, Medication withdrawal Condition: Good Instructions: Acute Nausea and Vomiting (ED) Additional Instructions: Please continue taking her prescribed medications. Return emergency department for uncontrolled nausea vomiting, fevers, chills, or any other concerns. Follow up with primary care physician in 5-6 days for further evaluation. Referrals: [facility],. [Clinic] - As per Instructions
[2017-05-18] MEDS ORDERED: NS 1,000 ML IV ONE (18:20)
[2017-05-18 18:37] VITALS: BP 154/98; PULSE 75; RESP 16; TEMP 99.5; O2SAT 98
== END 2017-05-18 18:44 | disposition home or self-care (01) ==
DX: F19.239 Other psychoactive substance dependence with withdrawal, unspecified (principal); F17.200 Nicotine dependence, unspecified, uncomplicated
CPT/HCPCS: 96374; J1630; J2405

== ENCOUNTER 2017-06-03 18:08 | Emergency (ER) | payer MEDICAID ==
[2017-06-03 18:19] VITALS: TEMP 98.4
--- NOTE | 2017-06-03 18:55 | EDPHY ---
H & P Stated Complaint: abcess r arm on bactrim n keflex need draining etc, painful l f/a Time Seen by Provider: 06/03/17 18:54 HPI/ROS: Chief Complaint: Right arm abscesses HPI: 31-year-old male former IV drug abuser who states that he has been clean for several months developed 2 abscesses in his right arm in the last week. He was seen at [facility] and started on Bactrim and Keflex. He was instructed to come to the hospital for incision and drainage but has not done so. He states that the abscesses are growing. Denies any fevers or chills. No streaking up his arm. No nausea or vomiting. Patient states he is not injected anything for several months and has been clean from all substance abuse. ROS: 10 point Review of Systems is negative except as noted in the HPI. PMH: IV drug abuse, prior IV site abscesses Social History: Denies smoking, denies alcohol, no recreational drug use Family History: non-contributory Physical Exam: Gen: Awake, Alert, No Distress HEENT: Nose: no rhinorrhea Eyes: PERRLA, EOMI Mouth: Moist mucosa Neck: Supple, no JVD Ext: Right arm: He has got a large 5 cm abscess over his right biceps, there is moderate surrounding erythema. Right forearm, there is a 4 cm abscess with fluctuance and pointing. There is a mild amount of surrounding erythema. There is no proximal lymphangitic streaking. Skin: Per right arm Neuro: CN II-XII intact, Sensation grossly intact, Strength 5/5 in bilateral upper and lower extremities - Personal History Current Tetanus/Diphtheria Vaccine: Unsure Current Tetanus Diphtheria and Acellular Pertussis (TDAP): Unsure Tetanus Vaccine Date: < 10 years - Medical/Surgical History Hx Asthma: No Hx Chronic Respiratory Disease: No Hx Diabetes: No Hx Cardiac Disease: No Hx Renal Disease: No Hx Cirrhosis: No Hx Alcoholism: No Hx HIV/AIDS: No Hx Splenectomy or Spleen Trauma: No Other PMH: IVDA clean since 03/07, Ankylosing spondylitis Depression, Anxiety, appy, PTSD - Social History Smoking Status: Current every day smoker Constitutional: Initial Vital Signs Temperature (C) 36.9 C 06/03/17 18:15 Heart Rate 102 H 06/03/17 18:15 Respiratory Rate 16 06/03/17 18:15 Blood Pressure 109/68 06/03/17 18:15 O2 Sat (%) 95 06/03/17 18:15 O2 Delivery Mode Room Air Allergies/Adverse Reactions: azithromycin [From Zithromax] Allergy (Intermediate, Verified 04/25/17 15:09) Hives Home Medications: Medication Instructions Recorded ALPRAZolam [Xanax 1 MG (*)] 1 - 2 mg PO DAILY PRN 12/24/16 Gabapentin [Neurontin 300 MG (*)] 300 mg PO TID 12/24/16 Ibuprofen [Motrin (*)] 800 mg PO DAILY PRN 12/24/16 Methadone HCl [Methadone 5 mg (*)] 135 mg PO DAILY 12/24/16 Methocarbamol [Robaxin 500 mg (*)] 500 mg PO HS PRN 12/24/16 QUEtiapine FUMARATE [Seroquel 100 100 mg PO HS 12/24/16 mg (*)] traZODone [traZODONE 100MG (*)] 100 mg PO HS 12/24/16 LORazepam [Ativan 1 mg (RX)] 1 mg PO Q6-8PRN PRN #7 tab 01/04/17 LORazepam [Ativan (*)] 1 mg PO Q6 PRN #10 tab 03/29/17 LORazepam [Ativan 1 mg (RX)] 1 mg PO Q6 PRN #3 tab 04/25/17 Promethazine HCl [Phenergan] 25 mg PO Q6 #7 tab 04/25/17 Medical Decision Making Procedures: Procedure: Abscess 1. Drainage The patient's abscess was located on the right upper arm. I obtained verbal consent from the patient to drain the abscess who was informed about the possibility of bleeding and pain. The abscess was incised with 11 blade scalpel and a large amount of purulent drainage was expressed. I irrigated the wound and placed some packing. The patient tolerated the procedure well. The procedure was performed by myself. Procedure: Abscess 2. drainage. The patient's abscess was located on the right forearm. I obtained verbal consent from the patient to drain the abscess who was informed about the possibility of bleeding and pain. The abscess was incised with 11 blade scalpel and a large amount of purulent drainage was expressed. I irrigated the wound and placed some packing. The patient tolerated the procedure well. The procedure was performed by myself. Departure - Departure Disposition: Home, Routine, Self-Care Clinical Impression: Abscess Condition: Good Instructions: Abscess (ED) Additional Instructions: Continue taking the antibiotics he was prescribed by [facility]. Follow up with [facility] in 2-3 days for packing removal. Return to the emergency department for increasing redness, fevers, chills, uncontrolled pain, or any other concerns. Referrals: Patient,NotPresent [Primary Care Provider] - As per Instructions [facility],. [Clinic] - As per Instructions
[2017-06-03 19:52] VITALS: BP 112/56; PULSE 97; RESP 18; O2SAT 97
== END 2017-06-03 20:09 | disposition home or self-care (01) ==
PROC: 0H9DXZZ Drainage of Right Lower Arm Skin, External Approach (ICD-10-PCS; principal; 2017-06-03)
PROC: 0H9BXZZ Drainage of Right Upper Arm Skin, External Approach (ICD-10-PCS; principal; 2017-06-03)
DX: L02.413 Cutaneous abscess of right upper limb (principal); F17.200 Nicotine dependence, unspecified, uncomplicated

== ENCOUNTER 2017-08-08 15:53 | Emergency (ER) | payer MEDICAID ==
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
[2017-08-08] MEDS ORDERED: SKIN ADHESIVE (DERMABOND) 1 EACH TP ONE (16:46)
[2017-08-08 18:37] VITALS: BP 132/90; PULSE 70; RESP 15; TEMP 98.1; O2SAT 96
== END 2017-08-08 18:37 | disposition home or self-care (01) ==
PROC: 0HQ1XZZ Repair Face Skin, External Approach (ICD-10-PCS; principal; 2017-08-08)
DX: S42.025A Nondisplaced fracture of shaft of left clavicle, initial encounter for closed fracture (principal); S01.112A Laceration without foreign body of left eyelid and periocular area, initial encounter; S66.911A Strain of unspecified muscle, fascia and tendon at wrist and hand level, right hand, initial encounter; F17.200 Nicotine dependence, unspecified, uncomplicated; V18.2XXA Unspecified pedal cyclist injured in noncollision transport accident in nontraffic accident, initial encounter
CPT/HCPCS: A4565

== ENCOUNTER 2017-12-17 13:08 | Emergency (ER) | payer MEDICAID, OTHER ==
[~2017-12-17 13:08] MED LIST: GABAPENTIN 300 MG CAP PO SCH; ONDANSETRON DISINTEGRATING 4 MG TAB PO SCH; lamoTRIgine 100 MG TAB PO SCH
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
[2017-12-17 15:11] VITALS: BP 128/88
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
--- NOTE | 2017-12-19 19:38 | ASMTCMCOM ---
CM Note CM Note Notes: Followed up with [facility] today re:pt's recent ED visit 12/17/17 and to ensure they're aware patient was provided a Rxn for Xanax, among other filled Rxns at that time. Spoke w/Shanelle at and she states pt had an appt w/[facility] and [facility] yesterday and no-showed to both appts. But pt did call into [facility] yesterday and today requesting a refill of his Xanax, despite that the last time he was seen by Maribel Garcia on 12/12/17 and provided the Xanax rxn, he was informed that he would not be receiving another prescription. If patient returns to the ED for Rxns refills, please do not provide any additional medications and Rxns as he needs to follow up with [facility] and [facility]. Date Signed: 12/19/2017 07:38 PM Electronically Signed By:Jesusita Sanchez RN
== END 2017-12-17 15:46 | disposition home or self-care (01) ==
LOC: EDBD → EDUNIT#
DX: F41.9 Anxiety disorder, unspecified (principal); F17.200 Nicotine dependence, unspecified, uncomplicated

== ENCOUNTER 2018-04-03 22:18 | Inpatient (IN) | payer MEDICAID ==
[2018-04-03] MEDS ORDERED: MIDAZOLAM 10 MG/2 ML VIAL IM ONE (22:23)
--- NOTE | 2018-04-03 22:29 | EDPHY ---
H & P Stated Complaint: ams Time Seen by Provider: 04/03/18 22:20 HPI/ROS: HPI The patient presents with altered mental status found outside of the [facility] with bizarre behavior. Upon ribbon winder arrival they found the patient yelling, screaming and pacing, confused and agitated. He received Haldol 10 mg IM followed by Versed 5 mg IM with minimal improvement. He arrives here in 4 point restraints, screaming and thrashing. . REVIEW OF SYSTEMS 10 systems were reviewed and negative with the exception of the elements mentioned in the history of present illness. PMHx: History of IV drug use though records states that he has been clean for the last 1 year and managed on methadone, depression, anxiety, history of appendectomy Soc Hx: Prior IVDU PHYSICAL General Appearance: Agitated, thrashing about, in 4 point restraints Head; small abrasion to right forehead Eyes: Pupils equal and round no pallor or injection ENT, Mouth: Mucous membranes dry Respiratory: There are no retractions, lungs are clear to auscultation Cardiovascular: Tachycardic rate and regular rhythm Gastrointestinal: Abdomen is soft and non-tender, no masses, bowel sounds normal Neurological: Alert, moves all extremities Skin: Warm and dry, no rashes Musculoskeletal: Neck is supple non tender Extremities: symmetrical, full range of motion Psychiatric: The patient is agitated and delirious Source: Patient, EMS Exam Limitations: Intoxication - Personal History Tetanus Vaccine Date: < 10 years - Medical/Surgical History Hx Asthma: No Hx Chronic Respiratory Disease: No Hx Diabetes: No Hx Cardiac Disease: No Hx Renal Disease: No Hx Cirrhosis: No Hx Alcoholism: No Hx HIV/AIDS: No Hx Splenectomy or Spleen Trauma: No Other PMH: IVDA clean since 03/07, Ankylosing spondylitis Depression, Anxiety, appy, PTSD - Social History Smoking Status: Current every day smoker Constitutional: Initial Vital Signs Temperature (C) 36.9 C 04/03/18 22:38 Heart Rate 135 H 04/03/18 22:38 Respiratory Rate 20 04/03/18 22:38 Blood Pressure 142/88 H 04/03/18 22:38 O2 Sat (%) 95 04/03/18 22:38 O2 Delivery Mode Ventilator O2 (L/minute) 10 Allergies/Adverse Reactions: azithromycin [From Zithromax] Allergy (Intermediate, Verified 04/03/18 22:30) Hives Home Medications: Medication Instructions Recorded ALPRAZolam [Alprazolam Odt] 1 mg PO BID #10 tab.rapdis 12/17/17 Alprazolam 12/17/17 Gabapentin 12/17/17 Gabapentin 600 mg PO BID #10 tablet 12/17/17 Lamictal 12/17/17 Methadone HCl 12/17/17 Ondansetron HCl [Zofran] 8 mg PO DAILY #5 tablet 12/17/17 Zofran 12/17/17 lamoTRIgine [Lamictal] 100 mg PO DAILY #5 tablet 12/17/17 traZODone 12/17/17 traZODone [traZODone 150MG (*)] 150 mg PO DAILY #5 tab 12/17/17 Medical Decision Making - Diagnostics Imaging Results: Chest x-ray single view shows ET tube in good position, OG tube in good position , no infiltrate seen, interpreted by me, radiology interpretation is pending. CT head without contrast is unremarkable, discussed with Dr. Del Cid of Radiology. Imaging: Discussed imaging studies w/ cylinder inspector Radiologist, I viewed and interpreted images myself Procedures: INTUBATION Procedure: Rapid sequence intubation. Indication for the procedure was airway protection. The patient was preoxygenated with 100% oxygen by face mask. The patient was given the following IV medications: Etomidate, rocuronium as a defasciculating agent . The patient was orally endotracheally intubated using glide scope with a 7.5 ETT. Tracheal intubation was confirmed with misting on the tube; breath sounds were auscultated equally bilaterally; appropriate color change with [place] End Tidal CO2 detector. Chest X-ray shows ETT in good position. The procedure was performed by myself. Differential Diagnosis: 32-year-old man with past medical history of IV drug use, depression, anxiety, PTSD, history of appendectomy presents brought in by ambulance for altered mental status thought to be related to methamphetamine intoxication, found outside of the [facility] with bizarre behavior. On arrival, the patient is thrashing, requiring 4 point restraints. IV was placed and the patient was given Versed 5 mg IV. The patient required multiple doses of benzodiazepines including Versed, lorazepam, followed by Haldol without any improvement in his agitation. He continued to mumble and thrash requiring 4 point restraints. He was given his Zyprexa 20 mg as well. He had minimal improvement with high doses of lorazepam but continued to require restraints. 12:55 a.m.- Patient was moved to high acuity room and procedural sedation was performed with ketamine 200 mg IV push with good result. Patient continued to have occasional twitches of his legs though seemed to be more comfortable. Vital signs remained stable. 1:45 a.m.- After about 30 min post ketamine administration, patient again became agitated thrashing and moaning. Decision made to intubate as patient require CT scan of his head and I worry that administering more medication could result in respiratory depression. The patient will be admitted to the ICU under Dr. Quiroz. Critical Care Time: CRITICAL CARE Critical care time spent by me, Dr. Taylor, exclusively with this patient was 60 minutes, exclusive of PA time and exclusive of procedures. The organ system at risk was neuro and I gave IV fluids, multiple doses of medication administered at the bedside for sedation to prevent worsening of the patients condition. - Data Points Laboratory Results: Laboratory Results 04/03/18 22:30 04/04/18 02:10 04/04/18 04/04/18 04/04/18 02:10 02:00 02:00 WBC RBC Hgb Hct MCV MCH MCHC RDW Plt Count MPV Neut % (Auto) Lymph % (Auto) Ford % (Auto) Eos % (Auto) Baso % (Auto) Nucleat RBC Rel Count Absolute Neuts (auto) Absolute Lymphs (auto) Absolute Monos (auto) Absolute Eos (auto) Absolute Basos (auto) Absolute Nucleated RBC Immature Gran % Immature Gran # Puncture Site LEFT RADIAL Patient Temperature 37.0 DEGREES DEGREES pCO2 44 mmHg H mmHg (34-38) pO2 399 mmHg H mmHg (65-75) Total CO2 26 mEq/L mEq/L (23-27) ABG pH 7.37 (7.35-7.45) ABG PO2/FiO2 Ratio 998 RATIO RATIO ABG HCO3 25 mEq/L mEq/L (22-26) ABG O2 Saturation 100 % H % (92-95) ABG Base Excess 0.1 mEq/L mEq/L (-2.5-2.5) O2 Concentration % 40 % % (0-100) Respiration Rate 16 Set Respiration Rate 16 Assist Control YES Tidal Volume 500 End Tidal CO2 36 PEEP 5 Sodium 145 mEq/L mEq/L (135-145) Potassium 3.8 mEq/L mEq/L (3.3-5.0) Chloride 110 mEq/L mEq/L (97-110) Carbon Dioxide 27 mEq/l mEq/l (22-31) Anion Gap 8 mEq/L mEq/L (6-14) BUN 12 mg/dL mg/dL (7-23) Creatinine 0.6 mg/dL L mg/dL (0.7-1.3) Estimated GFR > 60 Glucose 125 mg/dL H mg/dL (70-100) Calcium 8.8 mg/dL mg/dL (8.5-10.4) Total Bilirubin 0.9 mg/dL mg/dL (0.1-1.4) AST 58 IU/L IU/L (17-59) ALT 42 IU/L IU/L (21-72) Alkaline Phosphatase 55 IU/L IU/L (38-126) Creatine Kinase 766 IU/L H IU/L (0-224) CK-MB (CK-2) Fraction 12.30 ng/mL H ng/mL (0.00-4.55) CK-MB (CK-2) % 1.6 % % (0.0-4.0) Creatine Kinase Interp NEGATIVE (NEGATIVE) Total Protein 6.7 g/dL g/dL (6.3-8.2) Albumin 4.2 g/dL g/dL (3.5-5.0) Urine Opiates Screen NEGATIVE (NEGATIVE) Urine Barbiturates NEGATIVE (NEGATIVE) Ur Phencyclidine Scrn NEGATIVE (NEGATIVE) Ur Amphetamine Screen NEGATIVE (NEGATIVE) U Benzodiazepines Scrn NON-NEGATIVE H (NEGATIVE) Urine Cocaine Screen NEGATIVE (NEGATIVE) U Marijuana (THC) Screen NON-NEGATIVE H (NEGATIVE) Ethyl Alcohol 04/03/18 04/03/18 22:30 22:30 WBC 12.28 10^3/uL H 10^3/uL (3.80-9.50) RBC 4.51 10^6/uL 10^6/uL (4.40-6.38) Hgb 13.8 g/dL g/dL (13.7-17.5) Hct 41.3 % % (40.0-51.0) MCV 91.6 fL fL (81.5-99.8) MCH 30.6 pg pg (27.9-34.1) MCHC 33.4 g/dL g/dL (32.4-36.7) RDW 12.5 % % (11.5-15.2) Plt Count 226 10^3/uL 10^3/uL (150-400) MPV 10.2 fL fL (8.7-11.7) Neut % (Auto) 48.8 % % (39.3-74.2) Lymph % (Auto) 40.3 % % (15.0-45.0) Ford % (Auto) 7.1 % % (4.5-13.0) Eos % (Auto) 3.3 % % (0.6-7.6) Baso % (Auto) 0.3 % % (0.3-1.7) Nucleat RBC Rel Count 0.0 % % (0.0-0.2) Absolute Neuts (auto) 5.98 10^3/uL 10^3/uL (1.70-6.50) Absolute Lymphs (auto) 4.95 10^3/uL H 10^3/uL (1.00-3.00) Absolute Monos (auto) 0.87 10^3/uL H 10^3/uL (0.30-0.80) Absolute Eos (auto) 0.41 10^3/uL H 10^3/uL (0.03-0.40) Absolute Basos (auto) 0.04 10^3/uL 10^3/uL (0.02-0.10) Absolute Nucleated RBC 0.00 10^3/uL 10^3/uL (0-0.01) Immature Gran % 0.2 % % (0.0-1.1) Immature Gran # 0.03 10^3/uL 10^3/uL (0.00-0.10) Puncture Site Patient Temperature pCO2 pO2 Total CO2 ABG pH ABG PO2/FiO2 Ratio ABG HCO3 ABG O2 Saturation ABG Base Excess O2 Concentration % Respiration Rate Set Respiration Rate Assist Control Tidal Volume End Tidal CO2 PEEP Sodium 143 mEq/L mEq/L (135-145) Potassium 4.3 mEq/L mEq/L (3.3-5.0) Chloride 106 mEq/L mEq/L (97-110) Carbon Dioxide 25 mEq/l mEq/l (22-31) Anion Gap 12 mEq/L mEq/L (6-14) BUN 12 mg/dL mg/dL (7-23) Creatinine 0.7 mg/dL mg/dL (0.7-1.3) Estimated GFR > 60 Glucose 189 mg/dL H mg/dL (70-100) Calcium 9.6 mg/dL mg/dL (8.5-10.4) Total Bilirubin AST ALT Alkaline Phosphatase Creatine Kinase CK-MB (CK-2) Fraction CK-MB (CK-2) % Creatine Kinase Interp Total Protein Albumin Urine Opiates Screen Urine Barbiturates Ur Phencyclidine Scrn Ur Amphetamine Screen U Benzodiazepines Scrn Urine Cocaine Screen U Marijuana (THC) Screen Ethyl Alcohol < 10 mg/dL mg/dL (0-10) Medications Given: Propofol (Diprivan 10 Mg/Ml (Premix)) 100 mls @ 0 mls/hr IV CONT JOSE M; Per Protocol PRN Reason: Protocol Stop: 10/01/18 02:29 Last Admin: 04/04/18 04:28 Dose: 100 mls Sodium Chloride (Ns) 1,000 mls @ 100 mls/hr IV CONT JOSE M Stop: 10/01/18 02:29 Last Admin: 04/04/18 04:56 Dose: 1,000 mls Discontinued Medications Diphenhydramine HCl (Benadryl Injection) 50 mg IVP EDNOW ONE Stop: 04/03/18 22:37 Last Admin: 04/03/18 22:40 Dose: 50 mg Etomidate (Etomidate) 20 mg IVP EDNOW ONE Stop: 04/04/18 01:30 Last Admin: 04/04/18 01:18 Dose: 20 mg Haloperidol Lactate (Haldol Injection) 5 mg IVP EDNOW ONE Stop: 04/03/18 23:53 Last Admin: 04/03/18 23:53 Dose: 5 mg Sodium Chloride (Ns) 1,000 mls @ 0 mls/hr IV EDNOW ONE; Wide Open PRN Reason: Protocol Stop: 04/03/18 22:32 Last Admin: 04/03/18 22:33 Dose: 1,000 mls Sodium Chloride (Ns) 1,000 mls @ 0 mls/hr IV ONCE ONE PRN Reason: Wide Open Stop: 04/04/18 01:09 Last Admin: 04/04/18 01:09 Dose: 1,000 mls Propofol (Diprivan 10 Mg/Ml (Premix)) 100 mls @ 0 mls/hr IV CONT JOSE M; Titrate PRN Reason: Protocol Stop: 10/01/18 01:29 Last Admin: 04/04/18 01:20 Dose: 100 mls Fentanyl/Sodium Chloride (Fentanyl 10 Mcg/Ml (Premix)) 100 mls @ 0 mls/hr IV EDNOW ONE; As Directed PRN Reason: Protocol Stop: 04/04/18 02:01 Last Admin: 04/04/18 02:07 Dose: 100 mls Ketamine HCl (Ketamine) 200 mg IVP EDNOW ONE Stop: 04/04/18 00:55 Last Admin: 04/04/18 00:55 Dose: 200 mg Lorazepam (Ativan Injection) 2 mg IVP EDNOW ONE Stop: 04/03/18 23:34 Last Admin: 04/03/18 23:34 Dose: 2 mg Lorazepam (Ativan Injection) 2 mg IVP EDNOW ONE Stop: 04/04/18 00:09 Last Admin: 04/04/18 00:09 Dose: 2 mg Lorazepam (Ativan Injection) 2 mg IVP EDNOW ONE Stop: 04/04/18 00:19 Last Admin: 04/04/18 00:19 Dose: 2 mg Lorazepam (Ativan Injection) 3 mg IVP EDNOW ONE Stop: 04/04/18 00:49 Last Admin: 04/04/18 00:20 Dose: 3 mg Midazolam HCl (Versed) 5 mg IM EDNOW ONE Stop: 04/03/18 22:24 Last Admin: 04/03/18 22:33 Dose: Not Given Midazolam HCl (Versed) 5 mg IVP EDNOW ONE Stop: 04/03/18 22:33 Last Admin: 04/03/18 22:34 Dose: 5 mg Midazolam HCl (Versed) 2.5 mg IVP EDNOW ONE Stop: 04/03/18 22:53 Last Admin: 04/03/18 22:54 Dose: 2.5 mg Midazolam HCl (Versed) 5 mg IVP EDNOW ONE Stop: 04/03/18 23:43 Last Admin: 04/03/18 23:43 Dose: 5 mg Olanzapine (Zyprexa Injection) 10 mg IM EDNOW ONE Stop: 04/03/18 23:14 Last Admin: 04/03/18 23:13 Dose: 10 mg Pantoprazole Sodium (Protonix) 80 mg IVP EDNOW ONE Stop: 04/04/18 01:59 Last Admin: 04/04/18 02:11 Dose: 80 mg Rocuronium [place] (Zemuron) 70 mg IVP EDNOW ONE Stop: 04/04/18 01:30 Last Admin: 04/04/18 01:19 Dose: 70 mg Point of Care Test Results: Blood Gas/Lactic Acid-Arterial 04/04/18 02:00 Tidal Volume 500 Departure - Departure Disposition: [facility] Inpatient Acute Clinical Impression: Tachycardia, Hyperglycemia Altered mental status Qualifiers: Altered mental status type: unspecified Qualified Code(s): R41.82 - Altered mental status, unspecified GI bleed Qualifiers: GI bleed type/associated pathology: unspecified gastrointestinal hemorrhage type Qualified Code(s): K92.2 - Gastrointestinal hemorrhage, unspecified Condition: Fair
[2018-04-03] MEDS ORDERED: NS 1,000 ML IV ONE (22:31)
[2018-04-03] MEDS ORDERED: MIDAZOLAM 2 MG/2 ML VIAL IVP ONE ×3 (22:32→23:42)
[2018-04-03 22:43] LABS: PLATELET COUNT 226 10^3/uL (150-400)
[2018-04-03] MEDS ORDERED: OLANZapine 10 MG/2 ML VIAL ONE (23:09)
[2018-04-03] MEDS ORDERED: OLANZapine 10 MG/2 ML VIAL IM ONE (23:13)
[2018-04-03] MEDS ORDERED: LORazepam 2 MG/ML INJ ONE (23:28)
[2018-04-03] MEDS ORDERED: LORazepam 2 MG/ML INJ IVP ONE (23:33)
[2018-04-03] MEDS ORDERED: MIDAZOLAM 10 MG/2 ML VIAL ONE (23:37)
[2018-04-03] MEDS ORDERED: HALOPERIDOL LACT 5 MG/ML INJ ONE (23:50)
[2018-04-03] MEDS ORDERED: HALOPERIDOL LACT 5 MG/ML INJ IVP ONE (23:52)
[2018-04-04] MEDS ORDERED: LORazepam 2 MG/ML INJ IVP ONE ×3 (00:08→00:48)
[2018-04-04] MEDS ORDERED: LORazepam 2 MG/ML INJ ONE (00:08)
[2018-04-04] MEDS ORDERED: PROPOFOL/EMULSION 1,000 MG/100 ML BOTTLE IV ONE (00:44)
[2018-04-04] MEDS ORDERED: KETAMINE 200 MG/20 ML VIAL IVP ONE (00:54)
[2018-04-04] MEDS ORDERED: NS 1,000 ML IV ONE (01:08)
[2018-04-04] MEDS ORDERED: ROCURONIUM 100 MG/10 ML VIAL IVP ONE (01:29)
[2018-04-04] MEDS ORDERED: ETOMIDATE 40 MG/20 ML INJ IVP ONE (01:29)
[2018-04-04] MEDS ORDERED: PROPOFOL/EMULSION 100 ML IV SCH (01:30)
[2018-04-04] MEDS ORDERED: PANTOPRAZOLE SODIUM 40 MG VIAL IVP ONE (01:58)
[2018-04-04] MEDS ORDERED: fentaNYL/NACL 100 ML IV ONE (02:00)
[2018-04-04] MEDS ORDERED: fentaNYL/NACL 100 ML IV SCH ×2 (02:00→02:30)
[2018-04-04] MEDS ORDERED: ACETAMINOPHEN 325 MG TAB PO PRN (02:18)
[2018-04-04] MEDS ORDERED: ONDANSETRON DISINTEGRATING 4 MG TAB PO PRN (02:18)
[2018-04-04] MEDS ORDERED: ONDANSETRON 4 MG/2 ML VIAL IVP PRN (02:18)
[2018-04-04] MEDS ORDERED: NS 1,000 ML IV SCH (02:30)
[2018-04-04 02:40] LABS: CREATINE KINASE 766 IU/L (0-224)
--- NOTE | 2018-04-04 02:42 | PDGENHP ---
History and Physical - Chief Complaint Agitation - History of Present Illness 32 yo M w/ hx of IVDU brought in by EMS for agitation. The patient was seen outside the [facility] acting erratically. EMS administered Haldol 10 mg and Versed 5 mg in the field with minimal improvement. He arrived to the ED in 4 point restraints trashing wildly. His agitation continued in the ED for several hours despite high doses of sedatives. In total he received Haldol 20 mg, Versed 17.5 mg, Ativan 8 mg, Zyprexa 20 mg, and Ketamine 200 mg. When this was not successful decision was made to intubate. At the time of my evaluation the patient is intubated and sedated. CTH unremarkable and Utox showing only MJ and benzodiazepines. Case discussed with ED physician Dr. Taylor; records reviewed and summarized above. History Information - Allergies/Home Medication List Allergies/Adverse Reactions: azithromycin [From Zithromax] Allergy (Intermediate, Verified 04/03/18 22:30) Hives Home Medications: Alprazolam 12/17/17 [Last Taken Unknown] Gabapentin 12/17/17 [Last Taken Unknown] Lamictal 12/17/17 [Last Taken Unknown] Methadone HCl 12/17/17 [Last Taken Unknown] Zofran 12/17/17 [Last Taken Unknown] traZODone 12/17/17 [Last Taken Unknown] I have personally reviewed and updated: family history, medical history - Past Medical History Additional medical history: Unable to obtain 2/2 AMS - Surgical History Additional surgical history: Unable to obtain 2/2 AMS - Family History Additional family history: Unable to obtain 2/2 AMS - Social History Smoking Status: Current every day smoker Review of Systems Review of Systems: Unable to obtain 2/2 AMS Physical Exam Physical Exam: Temp Pulse Resp BP Pulse Ox 37.8 C 89 16 133/86 H 96 04/04/18 02:00 04/04/18 02:00 04/04/18 02:00 04/04/18 02:00 04/04/18 02:00 Constitutional: appears nourished, other (Intuabed, sedated) Eyes: PERRL, anicteric sclera Ears, Nose, Mouth, Throat: moist mucous membranes, no oral mucosal ulcers Cardiovascular: regular rate and rhythym, no murmur, rub, or gallop Respiratory: no respiratory distress, other (Mechanical breath sounds) Gastrointestinal: normoactive bowel sounds, soft, non-tender abdomen Skin: warm, normal color, other (Abrasions on extremities from fighting restraints) Neurologic: other (Sedated), No facial droop Lab Data & Imaging Review 04/03/18 22:30 04/03/18 22:30 WBC 12.28 10^3/uL (3.80-9.50) H 04/03/18: RBC 4.51 10^6/uL (4.40-6.38) 04/03/18 22: Hgb 13.8 g/dL (13.7-17.5) 04/03/18: Hct 41.3 % (40.0-51.0) 04/03/18: MCV 91.6 fL (81.5-99.8) 04/03/18: MCH 30.6 pg (27.9-34.1) 04/03/18: MCHC 33.4 g/dL (32.4-36.7) 04/03/18 22: RDW 12.5 % (11.5-15.2) 04/03/18: Plt Count 226 10^3/uL (150-400) 04/03/18: MPV 10.2 fL (8.7-11.7) 04/03/18 22: Neut % (Auto) 48.8 % (39.3-74.2) 04/03/18: Lymph % (Auto) 40.3 % (15.0-45.0) 04/03/18: Howell % (Auto) 7.1 % (4.5-13.0) 04/03/18 22: Eos % (Auto) 3.3 % (0.6-7.6) 04/03/18: Baso % (Auto) 0.3 % (0.3-1.7) 04/03/18: Nucleat RBC Rel Count 0.0 % (0.0-0.2) 04/03/18: Absolute Neuts (auto) 5.98 10^3/uL (1.70-6.50) 04/03/18 22:30 Absolute Lymphs (auto) 4.95 10^3/uL (1.00-3.00) H 04/03/18 22:30 Absolute Monos (auto) 0.87 10^3/uL (0.30-0.80) H 04/03/18 22:30 Absolute Eos (auto) 0.41 10^3/uL (0.03-0.40) H 04/03/18 22:30 Absolute Basos (auto) 0.04 10^3/uL (0.02-0.10) 04/03/18 22:30 Absolute Nucleated RBC 0.00 10^3/uL (0-0.01) 04/03/18 22:30 Immature Gran % 0.2 % (0.0-1.1) 04/03/18 22:30 Immature Gran # 0.03 10^3/uL (0.00-0.10) 04/03/18 22:30 Puncture Site LEFT RADIAL 04/04/18 02:00 Patient Temperature 37.0 DEGREES 04/04/18 02:00 pCO2 44 mmHg (34-38) H 04/04/18 02:00 pO2 399 mmHg (65-75) H 04/04/18 02:00 Total CO2 26 mEq/L (23-27) 04/04/18 02:00 ABG pH 7.37 (7.35-7.45) 04/04/18 02:00 ABG PO2/FiO2 Ratio 998 RATIO 04/04/18 02:00 ABG HCO3 25 mEq/L (22-26) 04/04/18 02:00 ABG O2 Saturation 100 % (92-95) H 04/04/18 02:00 ABG Base Excess 0.1 mEq/L (-2.5-2.5) 04/04/18 02:00 O2 Concentration % 40 % (0-100) 04/04/18 02:00 Respiration Rate 16 04/04/18 02:00 Set Respiration Rate 16 04/04/18 02:00 Assist Control YES 04/04/18 02:00 Tidal Volume 500 04/04/18 02:00 End Tidal CO2 36 04/04/18 02:00 PEEP 5 04/04/18 02:00 Sodium 143 mEq/L (135-145) 04/03/18 22:30 Potassium 4.3 mEq/L (3.3-5.0) 04/03/18 22:30 Chloride 106 mEq/L (97-110) 04/03/18 22:30 Carbon Dioxide 25 mEq/l (22-31) 04/03/18 22:30 Anion Gap 12 mEq/L (6-14) 04/03/18 22:30 BUN 12 mg/dL (7-23) 04/03/18 22:30 Creatinine 0.7 mg/dL (0.7-1.3) 04/03/18 22:30 Estimated GFR > 60 04/03/18 22:30 Glucose 189 mg/dL (70-100) H 04/03/18 22:30 Calcium 9.6 mg/dL (8.5-10.4) 04/03/18 22:30 Urine Opiates Screen NEGATIVE (NEGATIVE) 04/04/18 02:00 Urine Barbiturates NEGATIVE (NEGATIVE) 04/04/18 02:00 Ur Phencyclidine Scrn NEGATIVE (NEGATIVE) 04/04/18 02:00 Ur Amphetamine Screen NEGATIVE (NEGATIVE) 04/04/18 02:00 U Benzodiazepines Scrn NON-NEGATIVE (NEGATIVE) H 04/04/18 02:00 Urine Cocaine Screen NEGATIVE (NEGATIVE) 04/04/18 02:00 U Marijuana (THC) Screen NON-NEGATIVE (NEGATIVE) H 04/04/18 02:00 Ethyl Alcohol < 10 mg/dL (0-10) 04/03/18 22:30 Assessment & Plan Assessment: 32 yo M w/ hx of IVDU presents with agitation. Plan: 1. Acute encephalopathy - Extreme agitation resistant to very high doses of sedatives. This is likely drug induced with possible underlying psychiatric contribution. CTH (personally reviewed/interpreted) does not reveal acute findings. Noting Utox only notable for MJ and BZDs, which were administered by EMS, this raises suspicion for use of synthetic substance not detected on our UDS. - Monitor in ICU, MIH in place - mIVF overnight - Wean sedation as able - Consider psychiatry eval once awake 2. AHRF - Intubation required for airway protection in the setting of high doses of necessary sedatives. - Wean as able - Ventilator management orders in place - Daily CXR, ABG Diet - NPO Code - Full Ppx - SCDs (noting coffee ground emesis noted in ED), H2B IV Dispo - Admit under observation status
[2018-04-04] MEDS: PROPOFOL/EMULSION 100 ML IV SCH ×2 (04:28→08:29)
[2018-04-04 06:25] LABS: PLATELET COUNT 154 10^3/uL (150-400)
[2018-04-04] MEDS ORDERED: CHLORHEXIDINE GLUCONATE 15 ML UDL PO SCH (08:00)
--- NOTE | 2018-04-04 08:23 | ASMTLACE ---
MARANDA Comorbidities - select Answers: Opioid dependence all that apply / Chronic pain # of Emergency department Answers: 3-4 visits in the last 6 months Social determinants Answers: History of substance abuse (ETOH, street drugs, prescription drugs, etc.) History of trauma (PTSD, child abuse, domestic violence, etc.) Mental health diagnosis (anxiety, depression, pers onality disorders, etc.) Score: 16 Date Signed: 04/04/2018 08:22 AM Electronically Signed By:Jeanne Islas
[2018-04-04] MEDS ORDERED: FAMOTIDINE 20 MG/NACL 50 ML IV SCH (09:00)
--- NOTE | 2018-04-04 10:24 | GCON ---
PULMONARY/CRITICAL CARE CONSULTATION DATE OF CONSULTATION: 04/04/2018 REFERRING PHYSICIAN: Elmer Quiroz MD REASON FOR REFERRAL: Evaluation and management of respiratory failure and mechanical ventilation. HISTORY: The patient is a 32-year-old male with history of ankylosing spondylitis and IV drug abuse who was found to be acting erratically. EMS was called and administered Haldol and Versed with minim al improvement. He was transferred to the emergency department where he was in [address] [place] [address]. He received high-dose medications, including Haldol 20 mg, Versed 17.5 mg, Ativan 8 mg , Zyprexa 20 mg, and ketamine 200 mg. Because the patient continued to have severe agitation despite these medications, he was intubated. He was then started on propofol and fentanyl. He has remained intubated overnight. He is now somewhat agitated despite being on propofol and fentanyl. He is ray ble to follow commands or answer questions. PAST MEDICAL HISTORY: 1. Ankylosing spondylitis. 2. Chronic pain. 3. History of IV drug abuse, including heroin, with subcutaneous abscesses due to skin popping. MEDICATIONS: At time of admission, include alprazolam, gabapentin, Lamictal, methadone, Zofran, and trazodone. ALLERGIES: Azithromycin. SOCIAL HISTORY: The patient smokes daily. FAMILY HISTORY: Unknown. REVIEW OF SYSTEMS: Unknown off. PHYSICAL EXAMINATION: GENERAL: The patient is intubated, mildly agitated. VITAL SIGNS: Blood pres sure is 123/79, heart rate is 96. He is afebrile. Oxygen saturations are 100% on 2 L. HEENT: Norm ocephalic and atraumatic. No icterus. NECK: No JVD. Trachea is midline. CHEST: Clear to auscult ation. CARDIAC: Regular rate and rhythm without murmur. ABDOMEN: Soft, nontender. Bowel sounds a re present. EXTREMITIES: No clubbing, cyanosis, or edema. NEURO: The patient is agitated, but not following commands or answering questions. He moves all 4 extremities strongly. LABORATORY/IMAGING: White blood count is 12.1, down from 12.3. Hemoglobin is 12.9 with a platelet c ount of 154. His chemistry group is unremarkable. CK is 766. Urine tox screen is non-negative for marijuana and benzodiazepines. Alcohol level is less than 10. Arterial blood gas shows a pH of 7.36 with a pO2 of 137, CO2 of 43, and a bicarbonate of 25, on assist control with a rate of 18 and tidal volume of 500, and 40% oxygen. Chest x-ray shows clear lung hughes and good placement of the endotracheal tube. Images are reviewed by me. ASSESSMENT: 1. Agitated delirium: It is suspected this is due to a drug ingestion, although nothing was clearly identified on the urine tox screen. It is possible that he took something that does not show up on the urine tox screen. Withdrawal from his chronic methadone is a less likely possibility. 2. Respiratory failure: This occurred due to medications required to control the patient's agitatio n. He does not seem to have any significant gas exchange abnormalities and his chest x-ray is unrema rkable. It is likely that he can be extubated once his agitation has improved. RECOMMENDATIONS: 1. Decrease sedation and possibly extubate if he is not too agitated. 2. Advance diet and resume home medications once extubated and more alert. /[id number]/MODL
--- NOTE | 2018-04-04 13:31 | HOSPPROG ---
Hospitalist Progress Note Assessment/Plan: #Acute encephalopathy with extreme agitation on admission, resistant to high doses of sedatives. Suspect drug induced with possible underlying psychiatric contribution. CT brain neg. U tox with THC and bzd's (given by EMS). Query synthetic substance - now off sedation, but very somnolent - cont M1 hold, plan for tlc eval when awake and medically clear #AHRF - Intubation required for airway protection in the setting of high doses of necessary sedatives and severe agitation, now extubated - 2 LPM, wean O2 as able Diet - NPO until awake Code - Full Ppx - SCDs Dispo - change to inpt Subjective: Pt somnolent, intermittently agitated. Objective: Vital Signs Temp Pulse Resp BP Pulse Ox 36.8 C 68 32 H 124/72 H 97 04/04/18 09:00 04/04/18 12:00 04/04/18 12:00 04/04/18 12:00 04/04/18 12:00 Laboratory Results 04/04/18 05:55 04/04/18 05:55 04/03/18 04/04/18 04/05/18 05:59 05:59 05:59 Intake Total 2251.5 124.9 Output Total 1950 125 Balance 301.5 -0.1 - Physical Exam Constitutional: no apparent distress Eyes: PERRL Ears, Nose, Mouth, Throat: moist mucous membranes Cardiovascular: regular rate and rhythym Respiratory: no respiratory distress Gastrointestinal: normoactive bowel sounds, soft, non-tender abdomen Skin: warm Psychiatric: encephalopathic ICD10 Worksheet Patient Problems: Problems Problem Status Onset Altered mental status Acute GI bleed Acute Hyperglycemia Acute Tachycardia Acute Cellulitis Acute
--- NOTE | 2018-04-04 15:10 | ASMTCMCOM ---
CM Note CM Note Notes: Pt with history of chronic pain from ankylosing spondylitis was found outside [facility] severely agitated with AMS, pt was brought to ED and had to be mechanically restrained and then intubated and sedated due to inability to manage agitation in the ED with medication. Now s/p extubation. Pt was positive for Benzos and Marijuana on tox screen, however also has a hx of meth and heroine use. Pt is homeless in [place] and states he stays at the [facility]. Pt asked that I call his mother Iqra Lopez and let her know he is here. Left a message on her voicemail to give us a call. Pt declined resources for drug and alcohol rehab. Therapies have been ordered, still pending. Pt will need us to notify [facility] for bed upon discharge. D/C Plan: Independent to homeless residential Date Signed: 04/04/2018 03:09 PM Electronically Signed By:Consuelo Baker
--- NOTE | 2018-04-04 15:17 | ASMTCMCOM ---
CM Note CM Note Notes: ADDENDUM: Valentine Bowman RN at [facility] notified of pt's admission and will follow up with him tomorrow. Date Signed: 04/04/2018 03:17 PM Electronically Signed By:Consuelo Baker
--- NOTE | 2018-04-04 15:44 | PDMN ---
Medical Necessity Medical necessity: Changed to IP as of 04/04/2018 per MD; pt on M1 hold, meets IP criteria; est los > 2 mn for acute encephalopathy with severe agitation requiring high dose sedatives leading to intubation for airway protection.
[2018-04-04] MEDS: METHADONE HCL 10 MG/ML UDSYR PO SCH (18:45)
[2018-04-04] MEDS: FAMOTIDINE 20 MG TAB PO SCH (19:55)
--- NOTE | 2018-04-05 06:34 | CPEKG ---
Test Reason : OPEN Blood Pressure : / mmHG Vent. Rate : 087 BPM Atrial Rate : 088 BPM P-R Int : 153 ms QRS Dur : 106 ms QT Int : 395 ms P-R-T Axes : 074 083 068 degrees QTc Int : 476 ms Sinus rhythm Borderline prolonged QT interval Confirmed by Lesley Taylor ([id number]) on 04/05/2018 6:33:30 AM Referred By: Confirmed By:Lesley Taylor
[2018-04-05] MEDS: METHADONE HCL 10 MG/ML UDSYR PO SCH (08:20)
[2018-04-05] MEDS: FAMOTIDINE 20 MG TAB PO SCH (08:20)
[2018-04-05 08:36] VITALS: BP 142/78
--- NOTE | 2018-04-05 09:23 | HOSPPROG ---
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 He is extremely upset, anxious , and not particularly willing to engage in appropriate conversation regarding further assessment and management of his medical and psychiatric issues at this moment From a medical standpoint he is stable for discharge from hospital. However, feel we need to have a mental health evaluation before discharging him to assess his mental health fitness at the moment and make sure that he has appropriate follow-up arranged. PLANS: * Attempting to get his medicine reconciliation completed and get his usual doses of medicines ordered * Mental health evaluation today, likely discharge after we get their recommendations for disposition * Close follow-up with his primary care at [facility] SUBJECTIVE: Very upset Stating he is feeling uncomfortable due to not getting all of his usual medications Will discuss other symptoms with me Denies any ingestion of any substance that would have caused his presenting illness OBJECTIVE Vitals reviewed: All normal without fever Senior C Software Engineer, my review: Exam: alert oriented anxious, upset, not confused or hallucinating and no tremor, belligerent affect and interactions in conversation skin warm dry color ok resps not labored lungs clear BSs heart regular abd soft nondistended nontender, bowel sounds present iv site ok Objective: Vital Signs Temp Pulse Resp BP Pulse Ox 36.9 C 74 21 H 142/78 H 94 04/05/18 08:00 04/05/18 08:00 04/05/18 08:00 04/05/18 08:00 04/05/18 06:21 04/04/18 04/05/18 04/06/18 06:59 06:59 06:59 Intake Total 2195 Output Total 551 Balance 2614 ICD10 Worksheet Patient Problems: Problems Problem Status Onset Altered mental status Acute GI bleed Acute Hyperglycemia Acute Tachycardia Acute Cellulitis Acute
[2018-04-05] MEDS ORDERED: ALPRAZolam 1 MG TAB PO PRN (12:20)
[2018-04-05] MEDS ORDERED: ONDANSETRON DISINTEGRATING 4 MG TAB PO PRN (12:20)
[2018-04-05] MEDS ORDERED: LIDOCAINE 4%/MENTHOL 1% PATCH TD PRN (12:20)
[2018-04-05] MEDS ORDERED: lamoTRIgine 100 MG TAB PO SCH (12:30)
[2018-04-05] MEDS ORDERED: GABAPENTIN 300 MG CAP PO SCH (12:30)
--- NOTE | 2018-04-05 13:18 | PDDCSUM ---
Discharge Summary Discharge Summary: DISCHARGE DIAGNOSES: * acute delirium with severe agitation requiring sedation to the point of needing mechanical ventilation; uncertain cause possible ingestion suspected * underlying mental health disorders, details unknown as we have no records here * former IV heroin user currently on methadone maintenance CONSULTANTS: [facility] of mental health services PROCEDURES: Noncontrast CT scan head unremarkable HOSPITAL COURSE SUMMARY: This patient was brought in by ambulance to the hospital emergently after being given sedation medicines in the field with severe agitation and confusion. There is no evidence of acute injury that we could see. The patient required further sedation in the emergency room for control of his agitation due to concern for his own and safety. He was given Haldol total 20 mg Versed 17.5 mg , Ativan 8 mg Zyprexa 20 mg in ketamine 200 mg all in the ER in order to gain control. He did require intubation mechanical ventilation with all of this. The patient was then observed in the intensive care unit where he gradually woke up. Now 2 days later he is wide awake alert talkative oriented. There is no sign that this is a withdrawal episode of any kind in the patient denies drinking significant alcohol. He also denies any ingestions of anything beyond his prescribed medicines which do of note include medical marijuana which he takes in the form of a concentrate. The patient did not have any fevers or signs of infection. There is no signs of injury and CT scan was unremarkable. There is no significant electrolyte abnormality or organ dysfunction. He had a mild rhabdomyolysis with CPK of 700. On this date the patient was felt medically stable for discharge from hospital but we are unable from the medical staff side to get an assessment of his mental health issues to the point this is largely due to the patient's unwillingness to engage in matter. Juliet Mitchell from the is safe and stable mental health standpoint. He is discharged from the hospital at this point in stable condition with no changes in medication. All of his medications he stays are prescribed by his primary care physician including his an appointment is set with his primary care physician on Monday 4 days from now. The patient' s mother has been here visiting and interacting with staff and the patient will be staying with his mother for the time being. PENDING TEST RESULTS: None MEDICATION CHANGES: None FOLLOW-UP PLAN: With primary care physician in 4 days Greater than 35 minutes bedside and care coordination time today
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
[2018-04-06] MEDS ORDERED: MULTIVITAMINS 1 EACH TAB PO SCH (09:00)
== END 2018-04-05 13:15 | disposition home or self-care (01) | DRG 760 ==
LOC: EDBD → EDUNIT# → F2N 04-04 02:44 → OBSVTOIN 04-04 13:32 → F2N 04-04 17:41
PROVIDERS: ADMIT Student in an Organized Health Care Education/Training Program; ATTEND Student in an Organized Health Care Education/Training Program
DX: R45.1 Restlessness and agitation (principal); M62.82 Rhabdomyolysis; E86.9 Volume depletion, unspecified; R41.0 Disorientation, unspecified; Z72.0 Tobacco use; Z59.0 Homelessness; F32.9 Major depressive disorder, single episode, unspecified; F41.9 Anxiety disorder, unspecified; F43.10 Post-traumatic stress disorder, unspecified; F12.959 Cannabis use, unspecified with psychotic disorder, unspecified
CPT/HCPCS: 80305; 96374; 97161-GP; G0480; J1200; J1630; J2060; J2250; J2704; J3010

== ENCOUNTER 2018-04-27 09:07 | Emergency (ER) | payer MEDICAID, OTHER ==
[2018-04-27] MEDS ORDERED: NS 1,000 ML IV ONE (09:48)
[2018-04-27] MEDS ORDERED: PROMETHAZINE HCL 25 MG/ML INJ IVP ONE (09:48)
[2018-04-27] MEDS ORDERED: LORazepam 2 MG/ML INJ IVP ONE (09:49)
--- NOTE | 2018-04-27 09:49 | EDPHY ---
H & P Stated Complaint: punched wall/r hand pain also recent cp with deep breath n/v Source: Patient Exam Limitations: No limitations - Personal History Current Tetanus Diphtheria and Acellular Pertussis (TDAP): Unsure Tetanus Vaccine Date: < 10 years - Medical/Surgical History Hx Asthma: No Hx Chronic Respiratory Disease: No Hx Diabetes: No Hx Cardiac Disease: No Hx Renal Disease: No Hx Cirrhosis: No Hx Alcoholism: No Hx HIV/AIDS: No Hx Splenectomy or Spleen Trauma: No Other PMH: IVDA clean since 03/07, Ankylosing spondylitis Depression, Anxiety, appy, PTSD - Social History Smoking Status: Current every day smoker Time Seen by Provider: 04/27/18 09:43 HPI/ROS: HPI: This is a 32-year-old male who presents with Chief Complaint: Multiple complaints including nausea, vomiting and right hand pain Location: GI Quality: Nausea, vomiting Duration: Since this morning Signs and Symptoms: no shortness of breath at rest, no shortness of breath on exertion, no cough, no chest pain, no palpitations, no lower extremity edema, no wheezing, no orthopnea, no paroxysmal nocturnal dyspnea, no fever, no injury/ trauma, no hemoptysis, no carpal pedal spasms Timing: Acute on chronic Severity: [id number] Context: Patient is a recovering IV drug user since February 2017, currently on methadone, homeless, history of appendectomy, presents with multiple complaints. The 1st 1 is that he woke up this morning after going to the methadone clinic feeling nauseous and vomited 2-3 times. He denies fever, diarrhea. He complains of abdominal cramping and burning in his chest after vomiting. No recent antibiotic use. He is requesting IV Phenergan and some fluids. He also punched a wall while at the longterm 3 days ago and complaining of right hand pain primarily at the base of the 5th/little finger. He reports that is tender to touch with mild decreased range of motion. He denies radiation, weakness, paresthesias. He admits that his anxiety has increased. He goes to the methadone clinic every morning. Modifying Factors: None Comment: ROS: A comprehensive 10 system review of systems is otherwise negative aside from elements mentioned in the history of present illness. MEDICAL/SURGICAL/SOCIAL HISTORY: Medical history: IVDA clean since 03/07, Ankylosing spondylitis Depression, Anxiety, appy, PTSD Surgical history: Appendectomy Social history: Homeless. Tobacco user. CONSTITUTIONAL: Nontoxic-appearing, slightly anxious, rude at 1st adult white male, awake and alert, no obvious distress HEENT: Atraumatic and normocephalic. NECK: supple, no midline tenderness, flexion 45 degrees, extension 45 degrees, right and left lateral flexion 45 degrees. No meningismus. Cardiovascular: Normal S1/S2, regular rate, regular rhythm, without murmur rub or gallop. PULMONARY/CHEST: Symmetrical and nontender. no crepitus. Clear to auscultation bilaterally. Good air movement. No accessory muscle usage. ABDOMEN: Soft, nondistended, nontender, bowel sounds heard x4 quadrants. No hepatosplenomegaly. No peritoneal signs. EXTREMITIES: 2/2 pulses, strength 5/5, right WRIST: Extension to 70, flexion to 80, radial deviation to 20 degree, ulnar deviation to 30, no scaphoid tenderness, no tenderness over ulnar styloid, no tenderness over radial styloid , no pain with Geraldo test. Tenderness at the base of the 5th digit on the right-hand. Mild swelling and ecchymosis noted. DIP/PIP/MCP flexion/ extension intact with good light touch sensation. no deformities, no clubbing, no cyanosis or edema. Negative Homans sign. NEUROLOGICAL: no focal neuro deficits. GCS 15. Light touch sensation intact. SKIN: Warm and dry, no erythema. no rash. Good capillary refill. (Denisse Cruz) Constitutional: Initial Vital Signs Temperature (C) 37.2 C 04/27/18 09:11 Heart Rate 56 L 04/27/18 09:11 Respiratory Rate 18 04/27/18 09:11 Blood Pressure 144/72 H 04/27/18 09:11 O2 Sat (%) 100 04/27/18 09:11 O2 Delivery Mode Room Air Allergies/Adverse Reactions: azithromycin [From Zithromax] Allergy (Intermediate, Verified 04/27/18 09:11) Hives Home Medications: Medication Instructions Recorded ALPRAZolam [Xanax 1 MG (*)] 1 mg PO DAILY PRN 12/17/17 Gabapentin [Neurontin 300 MG (*)] 300 mg PO BID 12/17/17 Methadone HCl [Methadone HCl 10 mg 59 mg PO DAILY 12/17/17 (*)] lamoTRIgine [Lamictal] 100 mg PO DAILY #5 tablet 12/17/17 Acetaminophen [Tylenol 325mg (*)] 325 mg PO DAILY PRN 04/05/18 Carboxymethylcellulose 1% [Refresh 1 drop EACHEYE DAILY PRN 04/05/18 Celluvisc (*)] Lidocaine [Lidoderm] 1 each TP DAILY PRN 04/05/18 Multivitamins [Multivitamin (*)] 1 each PO DAILY 04/05/18 Ondansetron HCl [Zofran] 8 mg PO DAILY PRN 04/05/18 traZODone [traZODone 150MG (*)] 150 mg PO HS 04/05/18 Promethazine HCl [Phenergan 12.5mg 12.5 mg PO Q6 PRN #6 tablet 04/27/18 tab] Medical Decision Making Procedures: Procedure: Splint placement. A right ulnar gutter Ortho Glass splint was applied Emergency Room flight technician. After application of the splint I returned and re-examined the patient. The splint was adequately immobilizing the joint and distal to the splint the patient's circulation and sensation was intact. (Denisse Cruz) ED Course/Re-evaluation: Vital signs reviewed and stable upon arrival. IV access and laboratory studies ordered along with right hand x-ray Patient given 1 L of fluid and IV promethazine 12.5 mg and IV Ativan 1 mg Abdomen is soft and nontender. Doubt surgical process. No signs of sepsis. Right hand x-ray my read shows minimally displaced boxer fracture; Fifth metacarpal head fracture with apex dorsal angulation. Placed in ulnar gutter splint with Hand surgery follow-up 1100: Notified by [employer] that patient refusing splint placement as he has a new job in a few days. Despite my medical recommendation, patient continues to refuse splint. Given volar Velcro splint as a compromise. 1145: Patient drinking liquids without any difficulty. Discharge home with a prescription for promethazine. This patient was seen under the supervision of my secondary supervising physician. I evaluated care for this patient independently. Discussed this patient with Dr. Ye who did not see the patient. (Denisse Cruz) The patient was evaluated and managed by the physician cleaner assistant. I have reviewed this chart and I agree with the findings and plan of care as documented , as indicated by my signature. I am the secondary supervising physician. ( Akua Ye) Differential Diagnosis: Abdominal pain including but not limited to appendicitis, cholecystitis, gastritis and urinary tract infection. (Denisse Cruz) - Data Points Laboratory Results: Laboratory Results 04/27/18 10:25 04/27/18 10:25 Medications Given: Discontinued Medications Sodium Chloride (Ns) 1,000 mls @ 0 mls/hr IV EDNOW ONE; Wide Open PRN Reason: Protocol Stop: 04/27/18 09:49 Last Admin: 04/27/18 10:33 Dose: 1,000 mls Lorazepam (Ativan Injection) 1 mg IVP EDNOW ONE Stop: 04/27/18 09:50 Last Admin: 04/27/18 10:36 Dose: 1 mg Promethazine HCl (Phenergan) 12.5 mg IVP EDNOW ONE Stop: 04/27/18 09:49 Last Admin: 04/27/18 10:34 Dose: 12.5 mg Departure - Departure Disposition: Home, Routine, Self-Care Clinical Impression: Closed boxer's fracture, Methadone use, Nausea and vomiting in adult Condition: Good Instructions: Promethazine (By injection), Splint Care (ED), Boxer Fracture (ED ) Additional Instructions: Keep the splint dry and in place until seen by Orthopedics. Take Tylenol 650 mg every 4 hours and/or Ibuprofen 600 mg every 8 hours with food as needed for pain. Apply ice for 30 minutes at a time; 2-3 times per day for the next 1-2 days. Follow up with Orthopedics in 5-7 days at which time they will evaluate and recommend with you if conservative management versus surgery is indicated. Return to the ER immediately if you experience new or worsening pain, discoloration, numbness, tingling, or any other symptoms that concern you. Consume a minimum of 8-10 glasses of water or electrolyte fluid replacement drinks that include Gatorade, Powerade, Pedialyte. Eat a bland diet for the next 48 hours and then slowly advance as tolerated. Take promethazine 1 tab every 6 hours as needed for nausea, vomiting. Referrals: Maribel Garcia PA [Primary Care Provider] - As per Instructions Holden Dewitt MD [Medical Doctor] - As per Instructions Prescriptions: Promethazine HCl [Phenergan 12.5mg tab] 12.5 mg PO Q6 PRN #6 tablet PRN Reason: Nausea/Vomiting, Use 1st
[2018-04-27 10:50] LABS: PLATELET COUNT 165 10^3/uL (150-400)
[2018-04-27 11:30] VITALS: BP 116/78
== END 2018-04-27 11:37 | disposition home or self-care (01) ==
PROC: 2W3CX1Z Immobilization of Right Lower Arm using Splint (ICD-10-PCS; principal; 2018-04-27)
DX: S62.306A Unspecified fracture of fifth metacarpal bone, right hand, initial encounter for closed fracture (principal); R11.2 Nausea with vomiting, unspecified; F11.90 Opioid use, unspecified, uncomplicated; Z59.0 Homelessness; W22.8XXA Striking against or struck by other objects, initial encounter; Y92.89 Other specified places as the place of occurrence of the external cause; Y93.9 Activity, unspecified; Y99.9 Unspecified external cause status
CPT/HCPCS: 96374; J2060; J2550; L3984

== ENCOUNTER 2018-05-09 08:05 | Emergency (ER) | payer MEDICAID, OTHER ==
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
[2018-05-09 10:18] VITALS: BP 133/80
== END 2018-05-09 10:18 | disposition home or self-care (01) ==
LOC: EDUNIT#
DX: S70.12XA Contusion of left thigh, initial encounter (principal); V13.4XXA Pedal cycle driver injured in collision with car, pick-up truck or van in traffic accident, initial encounter; Y92.410 Unspecified street and highway as the place of occurrence of the external cause; Y93.55 Activity, bike riding; S62.366D Nondisplaced fracture of neck of fifth metacarpal bone, right hand, subsequent encounter for fracture with routine healing; F17.200 Nicotine dependence, unspecified, uncomplicated; F32.9 Major depressive disorder, single episode, unspecified; F41.9 Anxiety disorder, unspecified; F43.10 Post-traumatic stress disorder, unspecified

== ENCOUNTER 2018-10-27 12:09 | Emergency (ER) | payer MEDICAID, OTHER | END 2018-10-27 15:16 | disposition home or self-care (01) ==